=== PATIENT | male | born 1995 | race African-American/Black ===

== ENCOUNTER 2016-10-29 05:02 | Observation (INO) | payer SELFPAY ==
--- NOTE | 2016-10-29 05:36 | PDOC ---
History of Present Illness - General History Source: Patient <Michael Linton - Last Filed: 10/29/16 05:36> - General History Source: Patient, Family Exam Limitations: No Limitations - History of Present Illness Initial Comments: 10/29/16 05:51 The patient is a 21 year old male with no significant past medical history, who presents to the emergency department s/p seizure at approximately 04:19 this morning. The patients brother reports he went into the patients room because he heard the thumping of a foot on the floor. When the brother arrived to the room, he reports finding the patient in a full generalized tonic-clonic seizure for approximately 5 minutes. The patient reports he does not recall being fully conscious during this episode. As per brother, the patient was in and out of consciousness. When EMS arrived on scene, the patient was still seizing. The patient reports he did not begin to regain full consciousness until he was in the ambulance. The patient denies any family history or previous medical history of seizures. The patient denies any urinary or bowel incontinence. He reports smoking marijuana before going to bed, but states he has never had seizures s/p marijuana use until today. The patient reports he feels cold and has a residual headache, but states he feels like himself again. The patient denies any fever, dizziness, lightheadedness, or cough. The patient denies any nausea, vomiting, diarrhea, constipation, or changes in urination patterns. Allergies: None reported. Past Surgical History: None reported. Social History: Non-smoker. Denies alcohol use. Occasional marijuana use. <Colton Madrid - Last Filed: 10/29/16 19:15> - General Chief Complaint: Seizure Stated Complaint: SEIZURES Time Seen by Provider: 10/29/16 05:13 Past History - Psycho/Social/Smoking Cessation Hx Suicidal Ideation: No Smoking Status: No Smoking History: Never smoked Have you smoked in the past 12 months: No Number of Cigarettes Smoked Daily: 0 Information on smoking cessation initiated: No Drug/Substance Use Hx: Yes ([facility]) <CristoballisaAuroraMichael - Last Filed: 10/29/16 05:36> <Colton Madrid - Last Filed: 10/29/16 19:15> - Past Medical History Allergies/Adverse Reactions: Allergies Allergy/AdvReac Type Severity Reaction Status Date / Time No Known Allergies Allergy Verified 10/29/16 05:08 Home Medications: Ambulatory Orders NK [No Known Home Medication] 10/29/16 Review of Systems - Review of Systems Able to Perform ROS?: Yes Comments:: 10/29/16 05:52 CONSTITUTIONAL: Absent: fever, chills, diaphoresis, generalized weakness, malaise, loss of appetite HEENT: Absent: rhinorrhea, nasal congestion, throat pain, throat swelling, difficulty swallowing, mouth swelling, ear pain, eye pain, visual changes CARDIOVASCULAR: Absent: chest pain, syncope, palpitations, irregular heart rate, lightheadedness , peripheral edema RESPIRATORY: Absent: cough, shortness of breath, dyspnea with exertion, orthopnea, wheezing, stridor, hemoptysis GASTROINTESTINAL: Absent: abdominal pain, abdominal distension, nausea, vomiting, diarrhea, constipation, melena, hematochezia GENITOURINARY: Absent: dysuria, frequency, urgency, hesitancy, hematuria, flank pain, genital pain MUSCULOSKELETAL: Absent: myalgia, arthralgia, joint swelling SKIN: Absent: rash, itching, pallor HEMATOLOGIC/IMMUNOLOGIC: Absent: easy bleeding, easy bruising, lymphadenopathy, frequent infections ENDOCRINE: Present: +generally cold Absent: unexplained weight gain, unexplained weight loss, heat intolerance NEUROLOGIC: Present: +seizure, +loss of consciousness Absent: headache, focal weakness or paresthesias, dizziness, unsteady gait, bladder or bowel incontinence PSYCHIATRIC: Absent: anxiety, depression, suicidal or homicidal ideation, hallucinations. <Colton Madrid - Last Filed: 10/29/16 19:15> *Physical Exam - Vital Signs Last Vital Signs Temp Pulse Resp BP Pulse Ox 96 H 14 135/79 100 10/29/16 05:09 10/29/16 05:09 10/29/16 05:09 10/29/16 05:09 <Michael Linton - Last Filed: 10/29/16 05:36> - Vital Signs Last Vital Signs Temp Pulse Resp BP Pulse Ox 97.5 F L 87 18 134/70 100 10/29/16 05:35 10/29/16 05:35 10/29/16 05:35 10/29/16 05:35 10/29/16 05:35 - Physical Exam Comments: 10/29/16 05:52 GENERAL: Well developed, well nourished. Awake and alert. No acute distress. HEENT: Normocephalic, atraumatic. PERRLA, EOMI. No conjunctival pallor. Sclera are non- icteric. Moist mucous membranes. Oropharynx is clear. NECK: Supple. Full ROM. No JVD. Carotid pulses 2+ and symmetric, without bruits. No thyromegaly. No lymphadenopathy. CARDIOVASCULAR: Regular rate and rhythm. No murmurs, rubs, or gallops. Distal pulses are 2+ and symmetric. PULMONARY: No evidence of respiratory distress. Lungs clear to auscultation bilaterally. No wheezing, rales or rhonchi. ABDOMINAL: Soft. Non-tender. Non-distended. No rebound or guarding. No organomegaly. Normoactive bowel sounds. MUSCULOSKELETAL Normal range of motion at all joints. No bony deformities or tenderness. No CVA tenderness. EXTREMITIES: No cyanosis. No clubbing. No edema. No calf tenderness. SKIN: Warm and dry. Normal capillary refill. No rashes. No jaundice. NEUROLOGICAL: Alert, awake, appropriate. Cranial nerves 2-12 intact. No deficits to light touch and temperature in face, upper extremities and lower extremities. No motor deficits in the in face, upper extremities and lower extremities. Normoreflexic in the upper and lower extremities. Normal speech. Toes are down- going bilaterally. Gait is normal without ataxia. PSYCHIATRIC: Cooperative. Good eye contact. Appropriate mood and affect. <Colton Madrid - Last Filed: 10/29/16 19:15> ED Treatment Course - LABORATORY CBC & Chemistry Diagram: 10/29/16 05:48 10/29/16 05:48 - RADIOLOGY Radiograph Interpretation: 10/29/16 06:52 EXAM: Head CT INTERPRETED BY: Dr. Wild REVIEWED BY: Dr. Linton IMPRESSION: Normal exam. EXAM: CXR INTERPRETED BY: Dr. Salazar REVIEWED BY: Dr. Linton IMPRESSION: No active disease in the chest. <Colton Madrid - Last Filed: 10/29/16 19:15> *DC/Admit/Observation/Transfer <Michael Linton - Last Filed: 10/29/16 05:36> - Attestations Scribe Attestion: 10/29/16 05:53 Documentation prepared by Colton Madrid, acting as medical sales representative for Michael Linton DO. <Colton Madrid - Last Filed: 10/29/16 19:15> Diagnosis at time of Disposition: Seizure grand mal
[2016-10-29] MEDS ORDERED: ACETAMINOPHEN 500 MG TABLET (FP) PO ONE (05:38)
[2016-10-29] MEDS ORDERED: ACETAMINOPHEN 325 MG TABLET (FP) ONE (05:42)
[2016-10-29 06:10] LABS: BASOPHIL 0.2 % (0-2.0); EOSINOPHIL 0.5 % (0-4.5); MCHC 32.9 g/dl (32.0-35.9); MEAN CELL VOLUME 78.9 fl (80-96); MEAN PLT VOLUME 9.1 fl (7.5-11.1); NEUTROPHILS 75.9 % (42.8-82.8); PLATELET COUNT 177 K/MM3 (134-434); RDW 14.9 % (11.9-15.9)
[2016-10-29 06:11] LABS: URINE APPEARANCE CLEAR; URINE BILIRUBIN NEGATIVE (NEGATIVE); URINE COLOR LTYELLOW; URINE GLUCOSE (UA) NEGATIVE (NEGATIVE); URINE KETONE NEGATIVE (NEGATIVE); URINE LEUK ESTERASE NEGATIVE (NEGATIVE); URINE NITRITE NEGATIVE (NEGATIVE); URINE UROBILINOGEN NEGATIVE E.U./dl (0.2-1.0)
[2016-10-29 06:24] LABS: URINE MARIJUANA THC POSITIVE ng/ml (CUTOFF=50)
[2016-10-29 06:30] LABS: INR 0.96 (0.82-1.09); PROTHROMBIN TIME (PATIENT) 10.6 SEC (9.98-11.88)
[2016-10-29 06:53] LABS: URINE BLOOD 1+ (NEGATIVE); URINE PROTEIN 2+ (NEGATIVE)
[2016-10-29 07:00] LABS: ALBUMIN 4.2 g/dl (3.4-5.0); ANION GAP 9 (8-16); BILIRUBIN,TOTAL 0.3 mg/dL (0.2-1.0); CALCIUM 8.6 mg/dL (8.5-10.1); CO2 26 mmol/L (21-32); CREATININE 1.5 mg/dL (0.7-1.3); GLUCOSE,RANDOM 107 mg/dL (74-106); SGOT/AST 19 U/L (15-37); SGPT/ALT 19 U/L (12-78)
[2016-10-29 07:03] LABS: ALK PHOS 89 U/L (45-117); TROPONIN I < 0.02 ng/ml (0.00-0.05)
--- NOTE | 2016-10-29 07:49 | PDOC ---
*Physical Exam - Vital Signs Last Vital Signs Temp Pulse Resp BP Pulse Ox 97.5 F L 87 18 134/70 100 10/29/16 05:35 10/29/16 05:35 10/29/16 05:35 10/29/16 05:35 10/29/16 05:35 - Physical Exam Comments: 10/29/16 07:49 SIGN IN Sign-out received from outgoing Emergency Physician Pt interviewed and examined Ancillary studies reviewed The patient is a 21 year old male with no significant past medical history, who presents to the emergency department s/p seizure at approximately 04:19 this morning. The patients brother reports he went into the patients room because he heard the thumping of a foot on the floor. When the brother arrived to the room, he reports finding the patient in a full generalized tonic-clonic seizure for approximately 5 minutes. The patient reports he does not recall being fully conscious during this episode. As per brother, the patient was in and out of consciousness. When EMS arrived on scene, the patient was still seizing. The patient reports he did not begin to regain full consciousness until he was in the ambulance. The patient denies any family history or previous medical history of seizures. The patient denies any urinary or bowel incontinence. He reports smoking marijuana before going to bed, but states he has never had seizures s/p marijuana use until today. The patient reports he feels cold and has a residual headache, but states he feels like himself again. The patient denies any fever, dizziness, lightheadedness, or cough. The patient denies any nausea, vomiting, diarrhea, constipation, or changes in urination patterns. Spoke to family member who witnessed the seizure patient had a generalized tonic-clonic seizure, without focality No family history of seizures, no prior history of seizures Alert and answering questions Grossly nonfocal neurologic exam Vital Signs - 24 hr 10/29/16 10/29/16 05:09 05:35 Temperature 97.5 F L Pulse Rate 96 H Pulse Rate [ 87 Radial] Respiratory 14 18 Rate Blood Pressure 135/79 Blood Pressure 134/70 [Right Arm] O2 Sat by Pulse 100 100 Oximetry (%) CT scan of the head without - NAD Laboratory Results - last 24 hr 10/29/16 10/29/16 10/29/16 05:48 05:48 05:48 WBC 8.0 RBC 5.22 Hgb 13.6 Hct 41.2 MCV 78.9 L MCHC 32.9 RDW 14.9 Plt Count 177 MPV 9.1 Neutrophils % 75.9 Lymphocytes % 18.8 Monocytes % 4.6 Eosinophils % 0.5 Basophils % 0.2 INR 0.96 Sodium Potassium Chloride Carbon Dioxide Anion Gap BUN Creatinine Creat Clearance w eGFR Random Glucose Calcium Total Bilirubin AST ALT Alkaline Phosphatase Creatine Kinase Creatine Kinase Index CK-MB (CK-2) CK-MB (CK-2) Rel Index Troponin I Total Protein Albumin Urine Color Ltyellow Urine Appearance Clear Urine pH 5.0 Ur Specific [place] 1.018 Urine Protein 2+ H Urine Glucose (UA) Negative Urine Ketones Negative Urine Blood 1+ H Urine Nitrite Negative Urine Bilirubin Negative Urine Urobilinogen Negative Ur Leukocyte Esterase Negative Opiates Screen Methadone Screen Barbiturate Screen Phencyclidine Screen Ur Amphetamines Screen MDMA (Ecstasy) Screen Benzodiazepines Screen Cocaine Screen U Marijuana (THC) Screen Blood Type Antibody Screen 10/29/16 10/29/16 10/29/16 05:48 05:48 05:48 WBC RBC Hgb Hct MCV MCHC RDW Plt Count MPV Neutrophils % Lymphocytes % Monocytes % Eosinophils % Basophils % INR Sodium 139 Potassium 3.7 Chloride 104 Carbon Dioxide 26 Anion Gap 9 BUN 27 H Creatinine 1.5 H Creat Clearance w eGFR 59.08 Random Glucose 107 H Calcium 8.6 Total Bilirubin 0.3 AST 19 ALT 19 Alkaline Phosphatase 89 Creatine Kinase 305 Creatine Kinase Index 0.4 CK-MB (CK-2) 1.177 CK-MB (CK-2) Rel Index Troponin I < 0.02 Total Protein 8.0 Albumin 4.2 Urine Color Urine Appearance Urine pH Ur Specific [place] Urine Protein Urine Glucose (UA) Urine Ketones Urine Blood Urine Nitrite Urine Bilirubin Urine Urobilinogen Ur Leukocyte Esterase Opiates Screen Positive Methadone Screen Negative Barbiturate Screen Negative Phencyclidine Screen Negative Ur Amphetamines Screen Negative MDMA (Ecstasy) Screen Negative Benzodiazepines Screen Negative Cocaine Screen Negative U Marijuana (THC) Screen Positive Blood Type O POSITIVE Antibody Screen Negative 10/29/16 05:48 WBC RBC Hgb Hct MCV MCHC RDW Plt Count MPV Neutrophils % Lymphocytes % Monocytes % Eosinophils % Basophils % INR Sodium Potassium Chloride Carbon Dioxide Anion Gap BUN Creatinine Creat Clearance w eGFR Random Glucose Calcium Total Bilirubin AST ALT Alkaline Phosphatase Creatine Kinase Creatine Kinase Index CK-MB (CK-2) CK-MB (CK-2) Rel Index Cancelled Troponin I Total Protein Albumin Urine Color Urine Appearance Urine pH Ur Specific [place] Urine Protein Urine Glucose (UA) Urine Ketones Urine Blood Urine Nitrite Urine Bilirubin Urine Urobilinogen Ur Leukocyte Esterase Opiates Screen Methadone Screen Barbiturate Screen Phencyclidine Screen Ur Amphetamines Screen MDMA (Ecstasy) Screen Benzodiazepines Screen Cocaine Screen U Marijuana (THC) Screen Blood Type Antibody Screen Drug screen positive for opiates and THC CXR - NAD chest x-ray-NAD Will load with Julienne Hospitalist [id number] admit Eakcznimah-[id number]-[id number] seizure disorder ED Treatment Course - LABORATORY CBC & Chemistry Diagram: 10/29/16 05:48 10/29/16 05:48 - ADDITIONAL ORDERS Additional order review: Laboratory Results 10/29/16 10/29/16 10/29/16 05:48 05:48 05:48 INR Sodium Potassium Chloride Carbon Dioxide Anion Gap BUN Creatinine Creat Clearance w eGFR Random Glucose Calcium Total Bilirubin AST ALT Alkaline Phosphatase Creatine Kinase Creatine Kinase Index CK-MB (CK-2) CK-MB (CK-2) Rel Index Cancelled Troponin I Total Protein Albumin Urine Color Urine Appearance Urine pH Ur Specific [place] Urine Protein Urine Glucose (UA) Urine Ketones Urine Blood Urine Nitrite Urine Bilirubin Urine Urobilinogen Ur Leukocyte Esterase Opiates Screen Positive Methadone Screen Negative Barbiturate Screen Negative Phencyclidine Screen Negative Ur Amphetamines Screen Negative MDMA (Ecstasy) Screen Negative Benzodiazepines Screen Negative Cocaine Screen Negative U Marijuana (THC) Screen Positive Blood Type O POSITIVE Antibody Screen Negative 10/29/16 10/29/16 10/29/16 05:48 05:48 05:48 INR 0.96 Sodium 139 Potassium 3.7 Chloride 104 Carbon Dioxide 26 Anion Gap 9 BUN 27 H Creatinine 1.5 H Creat Clearance w eGFR 59.08 Random Glucose 107 H Calcium 8.6 Total Bilirubin 0.3 AST 19 ALT 19 Alkaline Phosphatase 89 Creatine Kinase 305 Creatine Kinase Index 0.4 CK-MB (CK-2) 1.177 CK-MB (CK-2) Rel Index Troponin I < 0.02 Total Protein 8.0 Albumin 4.2 Urine Color Ltyellow Urine Appearance Clear Urine pH 5.0 Ur Specific [place] 1.018 Urine Protein 2+ H Urine Glucose (UA) Negative Urine Ketones Negative Urine Blood 1+ H Urine Nitrite Negative Urine Bilirubin Negative Urine Urobilinogen Negative Ur Leukocyte Esterase Negative Opiates Screen Methadone Screen Barbiturate Screen Phencyclidine Screen Ur Amphetamines Screen MDMA (Ecstasy) Screen Benzodiazepines Screen Cocaine Screen U Marijuana (THC) Screen Blood Type Antibody Screen 10/29/16 05:48 RBC 5.22 MCV 78.9 L MCHC 32.9 RDW 14.9 MPV 9.1 Neutrophils % 75.9 Lymphocytes % 18.8 Monocytes % 4.6 Eosinophils % 0.5 Basophils % 0.2 - Medications Given in the ED: ED Medications Discontinued Medications Generic Name Dose Route Start Last Admin Trade Name Freq PRN Reason Stop Dose Admin Acetaminophen 1,000 mg 10/29/16 05:38 10/29/16 06:06 Tylenol - PO 10/29/16 05:39 1,000 mg ONCE ONE Administration *DC/Admit/Observation/Transfer Diagnosis at time of Disposition: Grand mal seizure - Discharge Dispostion Admit: Yes
--- NOTE | 2016-10-29 09:44 | HP ---
PCP: None CHIEF COMPLAINT: Seizure HISTORY OF PRESENT ILLNESS: This is a 21-year-old man who comes to the ER after a witnessed seizure. He was found on the floor next to his bed having seizure activity. His entire body was shaking. He was found around 4:19 am and the activity lasted about 5 minutes. He did not bite his tongue and he was not incontinent. He awoke in the ambulance. His only complaint now is of a generalized headache. He denies prior seizures, fever, chills, chest pain, shortness of breath, recent illness, alcohol use. He admits to using marijuana and taking half of a Vicodin at a alliance party last night. PAST MEDICAL HISTORY: Denies PAST SURGICAL HISTORY: Denies Allergies No Known Allergies Allergy (Verified 10/29/16 05:08) HOME MEDICATIONS 3 Medication Instructions Recorded NK [No Known Home Medication] 10/29/16 Social History: Smoking: Denies Alcohol: Denies Drugs: Marijuana Recent Travel: No Family History: Unremarkable REVIEW OF SYSTEMS CONSTITUTIONAL: Absent: fever, chills, diaphoresis, generalized weakness, malaise, loss of appetite, weight change HEENT: Absent: rhinorrhea, nasal congestion, throat pain, throat swelling, difficulty swallowing, mouth swelling, ear pain, eye pain, visual changes CARDIOVASCULAR: Absent: chest pain, syncope, palpitations, lightheadedness, peripheral edema RESPIRATORY: Absent: cough, shortness of breath, dyspnea with exertion, orthopnea, wheezing, stridor, hemoptysis GASTROINTESTINAL: Absent: abdominal pain, abdominal distension, nausea, vomiting , diarrhea, constipation, melena, hematochezia GENITOURINARY: Absent: dysuria, frequency, urgency, hesitancy, hematuria, flank pain MUSCULOSKELETAL: Absent: myalgia, arthralgia, joint swelling, back pain, neck pain SKIN: Absent: rash, itching, pallor HEMATOLOGIC/IMMUNOLOGIC: Absent: easy bleeding, easy bruising, lymphadenopathy, frequent infections ENDOCRINE: Absent: unexplained weight gain, unexplained weight loss, heat intolerance, cold intolerance NEUROLOGIC: Present: headache. Absent: focal weakness, paresthesias, dizziness , unsteady gait, seizure, mental status changes, bladder or bowel incontinence PSYCHIATRIC: Absent: anxiety, depression, suicidal or homicidal ideation, hallucinations. PHYSICAL EXAMINATION Vital Signs Period Temp Pulse Resp BP Sys/Canseco Pulse Ox Last 24 Hr 97.5 F 87-96 14-18 134-135/70-79 100-100 GENERAL: Awake, alert, and fully oriented, in no acute distress. HEAD: Normal with no signs of trauma. EYES: Pupils equal, round and reactive to light, extraocular movements intact, sclerae anicteric, conjunctivae clear. EARS, NOSE, THROAT: Ears normal, nares patent, oropharynx clear without exudates. Moist mucous membranes. NECK: Normal range of motion, supple without lymphadenopathy, JVD, or masses. LUNGS: Breath sounds equal, clear to auscultation bilaterally. No wheezes, and no crackles. No accessory muscle use. HEART: Regular rate and rhythm, normal S1 and S2 without murmur, rub or gallop. ABDOMEN: Soft, nontender, not distended, normoactive bowel sounds, no guarding, no rebound, no masses. No hepatomegaly or splenomegaly. MUSCULOSKELETAL: Normal range of motion at all joints. No bony deformities or tenderness. No CVA tenderness. UPPER EXTREMITIES: 2+ pulses, warm, well-perfused. No cyanosis. No clubbing. Cap refill <2 seconds. No peripheral edema. LOWER EXTREMITIES: 2+ pulses, warm, well-perfused. No calf tenderness. No peripheral edema. NEUROLOGICAL: Cranial nerves II-XII intact. Normal speech. Gait not observed. PSYCHIATRIC: Cooperative. Good eye contact. Appropriate mood and affect. SKIN: Warm, dry, normal turgor, no rashes or lesions noted. Laboratory Tests 10/29/16 10/29/16 10/29/16 05:48 05:48 05:48 WBC 8.0 RBC 5.22 Hgb 13.6 Hct 41.2 MCV 78.9 L MCHC 32.9 RDW 14.9 Plt Count 177 MPV 9.1 Neutrophils % 75.9 Lymphocytes % 18.8 Monocytes % 4.6 Eosinophils % 0.5 Basophils % 0.2 INR 0.96 Sodium Potassium Chloride Carbon Dioxide Anion Gap BUN Creatinine Creat Clearance w eGFR Random Glucose Calcium Total Bilirubin AST ALT Alkaline Phosphatase Creatine Kinase Creatine Kinase Index CK-MB (CK-2) CK-MB (CK-2) Rel Index Troponin I Total Protein Albumin Urine Color Ltyellow Urine Appearance Clear Urine pH 5.0 Ur Specific [place] 1.018 Urine Protein 2+ H Urine Glucose (UA) Negative Urine Ketones Negative Urine Blood 1+ H Urine Nitrite Negative Urine Bilirubin Negative Urine Urobilinogen Negative Ur Leukocyte Esterase Negative Opiates Screen Methadone Screen Barbiturate Screen Phencyclidine Screen Ur Amphetamines Screen MDMA (Ecstasy) Screen Benzodiazepines Screen Cocaine Screen U Marijuana (THC) Screen Blood Type Antibody Screen 10/29/16 10/29/16 10/29/16 05:48 05:48 05:48 WBC RBC Hgb Hct MCV MCHC RDW Plt Count MPV Neutrophils % Lymphocytes % Monocytes % Eosinophils % Basophils % INR Sodium 139 Potassium 3.7 Chloride 104 Carbon Dioxide 26 Anion Gap 9 BUN 27 H Creatinine 1.5 H Creat Clearance w eGFR 59.08 Random Glucose 107 H Calcium 8.6 Total Bilirubin 0.3 AST 19 ALT 19 Alkaline Phosphatase 89 Creatine Kinase 305 Creatine Kinase Index 0.4 CK-MB (CK-2) 1.177 CK-MB (CK-2) Rel Index Troponin I < 0.02 Total Protein 8.0 Albumin 4.2 Urine Color Urine Appearance Urine pH Ur Specific [place] Urine Protein Urine Glucose (UA) Urine Ketones Urine Blood Urine Nitrite Urine Bilirubin Urine Urobilinogen Ur Leukocyte Esterase Opiates Screen Positive Methadone Screen Negative Barbiturate Screen Negative Phencyclidine Screen Negative Ur Amphetamines Screen Negative MDMA (Ecstasy) Screen Negative Benzodiazepines Screen Negative Cocaine Screen Negative U Marijuana (THC) Screen Positive Blood Type O POSITIVE Antibody Screen Negative 10/29/16 05:48 WBC RBC Hgb Hct MCV MCHC RDW Plt Count MPV Neutrophils % Lymphocytes % Monocytes % Eosinophils % Basophils % INR Sodium Potassium Chloride Carbon Dioxide Anion Gap BUN Creatinine Creat Clearance w eGFR Random Glucose Calcium Total Bilirubin AST ALT Alkaline Phosphatase Creatine Kinase Creatine Kinase Index CK-MB (CK-2) CK-MB (CK-2) Rel Index Cancelled Troponin I Total Protein Albumin Urine Color Urine Appearance Urine pH Ur Specific [place] Urine Protein Urine Glucose (UA) Urine Ketones Urine Blood Urine Nitrite Urine Bilirubin Urine Urobilinogen Ur Leukocyte Esterase Opiates Screen Methadone Screen Barbiturate Screen Phencyclidine Screen Ur Amphetamines Screen MDMA (Ecstasy) Screen Benzodiazepines Screen Cocaine Screen U Marijuana (THC) Screen Blood Type Antibody Screen Chest x-ray: No acute process. Head CT: No infarct, mass, hemorrhage. ASSESSMENT/PLAN: This is a 21-year-old man with no significant past medical history who presented to the ER after he was witnessed to have a generalized seizure at home. He admitted to using marijuana and taking Vicodin last night. He was found to have BUN 27, creatinine 1.5,and urinalysis positive for 2+ protein, 1+ blood. He is being placed in observation now for further evaluation of an emergent condition. 1. Seizure - First known seizure - EEG - Neurology consult 2. Acute kidney injury, secondary to dehydration, with proteinuria and microscopic hematuria - Rule out CKD - Renal US - IV fluid - Monitor BUN, creatinine - Nephrology consult Visit type - Emergency Visit Emergency Visit: Yes ED Registration Date: 10/29/16 Care time: The patient presented to the Emergency Department on the above date and was hospitalized for further evaluation of their emergent condition. - New Patient This patient is new to me today: Yes Date on this admission: 10/29/16 - Critical Care Critical Care patient: No
[2016-10-29] MEDS ORDERED: ACETAMINOPHEN 325 MG TABLET (FP) PO PRN (09:46)
[2016-10-29] MEDS ORDERED: ONDANSETRON 4 MG/2 ML VIAL IVPB PRN (09:46)
[2016-10-29 10:11] VITALS: BMI 28.8
--- NOTE | 2016-10-29 11:25 | CONSULT ---
Consult - text type - Consultation Consultation Note: Neurology The patient is a 21 year old male with no significant past medical history, who presents to the emergency department s/p seizure event in the context of substance use. The patients brother reports he went into the patients room because he heard the thumping of a foot on the floor. When the brother arrived to the room, he reports finding the patient in a full generalized tonic-clonic seizure for approximately 5 minutes. The patient reports he does not recall being fully conscious during this episode. As per brother, the patient was in and out of consciousness. When EMS arrived on scene, the patient was still seizing. The patient reports he did not begin to regain full consciousness until he was in the ambulance. The patient denies any family history or previous medical history of seizures. The patient denies any urinary or bowel incontinence. He reports smoking marijuana before going to bed and his UTOX was also positive for opiates and then reported taking a Vicodin for pain, but not for recreation. The patient denies any fever, dizziness, lightheadedness, or cough. The patient denies any nausea, vomiting, diarrhea, constipation, or changes in urination patterns. Past History - Psycho/Social/Smoking Cessation Hx Suicidal Ideation: No Smoking Status: No Smoking History: Never smoked Have you smoked in the past 12 months: No Number of Cigarettes Smoked Daily: 0 Information on smoking cessation initiated: No Drug/Substance Use Hx: Yes ([facility]) - Past Medical History Allergies/Adverse Reactions: Allergies Allergy/AdvReac Type Severity Reaction Status Date / Time No Known Allergies Allergy Verified 10/29/16 05:08 Home Medications: Ambulatory Orders NK [No Known Home Medication] 10/29/16 Review of Systems CONSTITUTIONAL: Absent: fever, chills, diaphoresis, generalized weakness, malaise, loss of appetite HEENT: Absent: rhinorrhea, nasal congestion, throat pain, throat swelling, difficulty swallowing, mouth swelling, ear pain, eye pain, visual changes CARDIOVASCULAR: Absent: chest pain, syncope, palpitations, irregular heart rate, lightheadedness , peripheral edema RESPIRATORY: Absent: cough, shortness of breath, dyspnea with exertion, orthopnea, wheezing, stridor, hemoptysis GASTROINTESTINAL: Absent: abdominal pain, abdominal distension, nausea, vomiting, diarrhea, constipation, melena, hematochezia GENITOURINARY: Absent: dysuria, frequency, urgency, hesitancy, hematuria, flank pain, genital pain MUSCULOSKELETAL: Absent: myalgia, arthralgia, joint swelling SKIN: Absent: rash, itching, pallor HEMATOLOGIC/IMMUNOLOGIC: Absent: easy bleeding, easy bruising, lymphadenopathy, frequent infections ENDOCRINE: Present: +generally cold Absent: unexplained weight gain, unexplained weight loss, heat intolerance NEUROLOGIC: Present: +seizure, +loss of consciousness Absent: headache, focal weakness or paresthesias, dizziness, unsteady gait, bladder or bowel incontinence PSYCHIATRIC: Absent: anxiety, depression, suicidal or homicidal ideation, hallucinations. *Physical Exam Last Vital Signs Temp Pulse Resp BP Pulse Ox 98.3 F 79 18 134/81 100 10/29/16 10:06 10/29/16 10:06 10/29/16 10:06 10/29/16 10:06 10/29/16 10:06 GENERAL: Well developed, well nourished. Awake and alert. No acute distress. HEENT: Normocephalic, atraumatic. PERRLA, EOMI. No conjunctival pallor. Sclera are non- icteric. Moist mucous membranes. Oropharynx is clear. NECK: Supple. Full ROM. No JVD. Carotid pulses 2+ and symmetric, without bruits. No thyromegaly. No lymphadenopathy. CARDIOVASCULAR: Regular rate and rhythm. No murmurs, rubs, or gallops. Distal pulses are 2+ and symmetric. PULMONARY: No evidence of respiratory distress. Lungs clear to auscultation bilaterally. No wheezing, rales or rhonchi. ABDOMINAL: Soft. Non-tender. Non-distended. No rebound or guarding. No organomegaly. Normoactive bowel sounds. MUSCULOSKELETAL Normal range of motion at all joints. No bony deformities or tenderness. No CVA tenderness. EXTREMITIES: No cyanosis. No clubbing. No edema. No calf tenderness. SKIN: Warm and dry. Normal capillary refill. No rashes. No jaundice. NEUROLOGICAL: Alert, awake, appropriate. Cranial nerves 2-12 intact. No deficits to light touch and temperature in face, upper extremities and lower extremities. No motor deficits in the in face, upper extremities and lower extremities. Normoreflexic in the upper and lower extremities. Normal speech. Toes are down- going bilaterally. Gait is normal without ataxia. PSYCHIATRIC: Cooperative. Good eye contact. Appropriate mood and affect. CBCD WBC 8.0 K/mm3 (4.0-10.0) 10/29/16 05:48 RBC 5.22 M/mm3 (4.00-5.60) 10/29/16 05:48 Hgb 13.6 GM/dL (11.7-16.9) 10/29/16 05:48 Hct 41.2 % (35.4-49) 10/29/16 05:48 MCV 78.9 fl (80-96) L 10/29/16 05:48 MCHC 32.9 g/dl (32.0-35.9) 10/29/16 05:48 RDW 14.9 % (11.9-15.9) 10/29/16 05:48 Plt Count 177 K/MM3 (134-434) 10/29/16 05:48 MPV 9.1 fl (7.5-11.1) 10/29/16 05:48 CMP Sodium 139 mmol/L (136-145) 10/29/16 05:48 Potassium 3.7 mmol/L (3.5-5.1) 10/29/16 05:48 Chloride 104 mmol/L (98-107) 10/29/16 05:48 Carbon Dioxide 26 mmol/L (21-32) 10/29/16 05:48 Anion Gap 9 (8-16) 10/29/16 05:48 BUN 27 mg/dL (7-18) H 10/29/16 05:48 Creatinine 1.5 mg/dL (0.7-1.3) H 10/29/16 05:48 Creat Clearance w eGFR 59.08 (>60) 10/29/16 05:48 Calcium 8.6 mg/dL (8.5-10.1) 10/29/16 05:48 Total Bilirubin 0.3 mg/dL (0.2-1.0) 10/29/16 05:48 AST 19 U/L (15-37) 10/29/16 05:48 ALT 19 U/L (12-78) 10/29/16 05:48 Alkaline Phosphatase 89 U/L (45-117) 10/29/16 05:48 Total Protein 8.0 g/dl (6.4-8.2) 10/29/16 05:48 Albumin 4.2 g/dl (3.4-5.0) 10/29/16 05:48 - RADIOLOGY Radiograph Interpretation: 10/29/16 06:52 EXAM: Head CT INTERPRETED BY: Dr. Wild REVIEWED BY: Dr. Linton IMPRESSION: Normal exam. Plan: 21 year old male with no significant past medical history, who presents to the emergency department s/p seizure event in the context of substance use. The patients brother reports he went into the patients room because he heard the thumping of a foot on the floor. When the brother arrived to the room, he reports finding the patient in a full generalized tonic-clonic seizure for approximately 5 minutes. UTOX was positive for opiates and THC Drug cessation discussed Admited for EEG and observation Seizure precaution Would not start AED for first time event CT negative Labs otherwise normal Patient at baseline
[2016-10-29] MEDS: SODIUM CHLORIDE 1,000 ML IV SCH (12:55)
--- NOTE | 2016-10-29 13:49 | CONSULT ---
Consult Consult Specialty:: Nephrology Reason for Consultation:: LELAND - History of Present Illness Chief Complaint: brought in to ER for seizure History of Present Illness: Pt is a 21 year old male with no significant past medical history who was brought in to the ER after having a seizure at home. The seizure lasted for about 4 minutes and was generalized tonic-clonic. He smoked marijuana last night and said he took half of a vicodin last night for knee pain. He was found to have elevated creatinine and I was called to evaluate him. He denies history of CKD. He denies family history of renal disease or dialysis. He denies dysuria or hematuria. He denies NSAID use. He is now awake and alert. - History Source History Provided By: Patient, Family Member - Alcohol/Substance Use History of Substance Use: reports: Marijuana - Smoking History Smoking history: Never smoked Have you smoked in the past 12 months: No Aproximately how many cigarettes per day: 0 Home Medications - Allergies Allergies/Adverse Reactions: Allergies Allergy/AdvReac Type Severity Reaction Status Date / Time No Known Allergies Allergy Verified 10/29/16 05:08 - Home Medications Home Medications: Ambulatory Orders NK [No Known Home Medication] 10/29/16 Family Disease History - Family Disease History Family History: Denies Review of Systems - Review of Systems Constitutional: reports: No Symptoms Eyes: reports: No Symptoms HENT: reports: No Symptoms Neck: reports: No Symptoms Cardiovascular: reports: No Symptoms Respiratory: reports: No Symptoms Gastrointestinal: reports: No Symptoms Genitourinary: reports: No Symptoms Musculoskeletal: reports: No Symptoms Integumentary: reports: No Symptoms Neurological: reports: No Symptoms Endocrine: reports: No Symptoms Hematology/Lymphatic: reports: No Symptoms Psychiatric: reports: No Symptoms Physical Exam Vital Signs: Vital Signs Temperature 98.3 F 10/29/16 10:06 Pulse Rate 79 10/29/16 10:06 Respiratory Rate 18 10/29/16 10:06 Blood Pressure 134/81 10/29/16 10:06 O2 Sat by Pulse Oximetry (%) 100 10/29/16 10:06 Constitutional: Yes: Calm Eyes: Yes: Conjunctiva Clear HENT: Yes: Atraumatic Neck: Yes: Supple Cardiovascular: Yes: S1, S2 Respiratory: Yes: CTA Bilaterally Gastrointestinal: Yes: Normal Bowel Sounds, Soft Renal/: Yes: WNL. No: CVA Tenderness - Left, CVA Tenderness - Right Musculoskeletal: Yes: WNL Extremities: Yes: WNL Edema: No Neurological: Yes: Oriented Psychiatric: Yes: Oriented Labs: Laboratory Tests 10/29/16 10/29/16 10/29/16 05:48 05:48 05:48 WBC 8.0 Hgb 13.6 Plt Count 177 INR 0.96 Sodium Potassium Chloride Carbon Dioxide Anion Gap BUN Creatinine Creat Clearance w eGFR Random Glucose Calcium Total Bilirubin AST ALT Alkaline Phosphatase Creatine Kinase Albumin Urine Color Ltyellow Urine Appearance Clear Urine pH 5.0 Ur Specific [place] 1.018 Urine Protein 2+ H Urine Glucose (UA) Negative Urine Ketones Negative Urine Blood 1+ H Urine Nitrite Negative Urine Bilirubin Negative Urine Urobilinogen Negative Ur Leukocyte Esterase Negative Opiates Screen Methadone Screen Barbiturate Screen Phencyclidine Screen Ur Amphetamines Screen MDMA (Ecstasy) Screen Benzodiazepines Screen Cocaine Screen U Marijuana (THC) Screen 10/29/16 10/29/16 05:48 05:48 WBC Hgb Plt Count INR Sodium 139 Potassium 3.7 Chloride 104 Carbon Dioxide 26 Anion Gap 9 BUN 27 H Creatinine 1.5 H Creat Clearance w eGFR 59.08 Random Glucose 107 H Calcium 8.6 Total Bilirubin 0.3 AST 19 ALT 19 Alkaline Phosphatase 89 Creatine Kinase 305 Albumin 4.2 Urine Color Urine Appearance Urine pH Ur Specific [place] Urine Protein Urine Glucose (UA) Urine Ketones Urine Blood Urine Nitrite Urine Bilirubin Urine Urobilinogen Ur Leukocyte Esterase Opiates Screen Positive Methadone Screen Negative Barbiturate Screen Negative Phencyclidine Screen Negative Ur Amphetamines Screen Negative MDMA (Ecstasy) Screen Negative Benzodiazepines Screen Negative Cocaine Screen Negative U Marijuana (THC) Screen Positive Imaging - Results Chest X-ray: Report Reviewed Cat Scan: Report Reviewed (ct head reviewed) Ultrasound: Report Reviewed (renal ultrasound reviewed) Problem List - Problems (1) Tonic clonic seizures Code(s): G40.409 - OTH GENERALIZED EPILEPSY, NOT INTRACTABLE, W/O STAT EPI (2) LELAND (acute kidney injury) Code(s): N17.9 - ACUTE KIDNEY FAILURE, UNSPECIFIED (3) Proteinuria Code(s): R80.9 - PROTEINURIA, UNSPECIFIED (4) Microscopic hematuria Code(s): R31.2 - OTHER MICROSCOPIC HEMATURIA * DO NOT USE * Assessment/Plan Current Medications Generic Name Dose Route Start Last Admin Trade Name Freq PRN Reason Stop Dose Admin Acetaminophen 650 mg 10/29/16 09:46 Tylenol - PO Q4H PRN FEVER OR PAIN Sodium Chloride 1,000 mls @ 100 mls/hr 10/29/16 10:00 10/29/16 12:55 Normal Saline - IV 100 mls/hr ASDIR ASH Administration Ondansetron HCl 4 mg 10/29/16 09:46 Zofran Injection IVPB Q6H PRN NAUSEA Impression 1. LELAND possibly dehydration 2. seizure 3. multi drug use including marijuana 4. proteinuria 5. microscopic hematuria Plan - will start fluids - repeat labs in am - renal ultrasound reviewed - repeat ua tomorrow - check urine creatinine and sodium to calculate fena - will need renal workup for CKD which can be done as outpt - check urine protein to creatinine ratio - neuro input appreciated Dr Shetty
--- NOTE | 2016-10-29 16:13 | EKG ---
Test Reason : Blood Pressure : / mmHG Vent. Rate : 085 BPM Atrial Rate : 085 BPM P-R Int : 238 ms QRS Dur : 088 ms QT Int : 344 ms P-R-T Axes : 049 059 037 degrees QTc Int : 409 ms SINUS RHYTHM WITH 1ST DEGREE A-V BLOCK OTHERWISE NORMAL ECG NO PREVIOUS ECGS AVAILABLE Confirmed by ANA HITCHCOCK, AIDE ([id number]) on 10/29/2016 4:13:04 PM Referred By: Confirmed By:AIDE PEREZ MD
[2016-10-29 17:38] LABS: URINE APPEARANCE CLEAR; URINE BILIRUBIN NEGATIVE (NEGATIVE); URINE BLOOD NEGATIVE (NEGATIVE); URINE COLOR STRAW; URINE GLUCOSE (UA) NEGATIVE (NEGATIVE); URINE KETONE NEGATIVE (NEGATIVE); URINE LEUK ESTERASE NEGATIVE (NEGATIVE); URINE NITRITE NEGATIVE (NEGATIVE); URINE PROTEIN NEGATIVE (NEGATIVE); URINE UROBILINOGEN NEGATIVE E.U./dl (0.2-1.0)
[2016-10-30 09:27] LABS: ALBUMIN 3.7 g/dl (3.4-5.0); ANION GAP 8 (8-16); BILIRUBIN,TOTAL 0.7 mg/dL (0.2-1.0); CALCIUM 8.3 mg/dL (8.5-10.1); CO2 26 mmol/L (21-32); CREATININE 1.2 mg/dL (0.7-1.3); GLUCOSE,RANDOM 89 mg/dL (74-106); SGOT/AST 27 U/L (15-37); SGPT/ALT 17 U/L (12-78)
[2016-10-30 09:29] LABS: ALK PHOS 52 U/L (45-117); TOT PROT 6.8 g/dl (6.4-8.2)
[2016-10-30] MEDS: SODIUM CHLORIDE 1,000 ML IV SCH (10:16)
--- NOTE | 2016-10-30 10:36 | PN ---
Progress Note (short form) - Note Progress Note: Neurology The patient is a 21 year old male with no significant past medical history, who presented to the emergency department s/p seizure event in the context of substance use. The patients brother reports he went into the patients room because he heard the thumping of a foot on the floor. When the brother arrived to the room, he reports finding the patient in a full generalized tonic-clonic seizure for approximately 5 minutes. The patient reports he does not recall being fully conscious during this episode. As per brother, the patient was in and out of consciousness. When EMS arrived on scene, the patient was still seizing. The patient reports he did not begin to regain full consciousness until he was in the ambulance. The patient denies any family history or previous medical history of seizures. The patient denies any urinary or bowel incontinence. He reports smoking marijuana before going to bed and his UTOX was also positive for opiates and then reported taking a Vicodin for pain, but not for recreation. The patient denies any fever, dizziness, lightheadedness, or cough. The patient denies any nausea, vomiting, diarrhea, constipation, or changes in urination patterns. EEG completed and reviewed, normal. Patient reports feeling well today and appears to be at baseline. *Physical Exam Vital Signs Period Temp Pulse Resp BP Sys/[employer] Pulse Ox Last 24 Hr 98.4 F-98.8 F 68-74 18-20 101-148/56-83 100-100 GENERAL: Well developed, well nourished. Awake and alert. No acute distress. HEENT: Normocephalic, atraumatic. PERRLA, EOMI. No conjunctival pallor. Sclera are non- icteric. Moist mucous membranes. Oropharynx is clear. NECK: Supple. Full ROM. No JVD. Carotid pulses 2+ and symmetric, without bruits. No thyromegaly. No lymphadenopathy. CARDIOVASCULAR: Regular rate and rhythm. No murmurs, rubs, or gallops. Distal pulses are 2+ and symmetric. PULMONARY: No evidence of respiratory distress. Lungs clear to auscultation bilaterally. No wheezing, rales or rhonchi. ABDOMINAL: Soft. Non-tender. Non-distended. No rebound or guarding. No organomegaly. Normoactive bowel sounds. MUSCULOSKELETAL Normal range of motion at all joints. No bony deformities or tenderness. No CVA tenderness. EXTREMITIES: No cyanosis. No clubbing. No edema. No calf tenderness. SKIN: Warm and dry. Normal capillary refill. No rashes. No jaundice. NEUROLOGICAL: Alert, awake, appropriate. Cranial nerves 2-12 intact. No deficits to light touch and temperature in face, upper extremities and lower extremities. No motor deficits in the in face, upper extremities and lower extremities. Normoreflexic in the upper and lower extremities. Normal speech. Toes are down- going bilaterally. Gait is normal without ataxia. PSYCHIATRIC: Cooperative. Good eye contact. Appropriate mood and affect. CBCD WBC 8.0 K/mm3 (4.0-10.0) 10/29/16 05:48 RBC 5.22 M/mm3 (4.00-5.60) 10/29/16 05:48 Hgb 13.6 GM/dL (11.7-16.9) 10/29/16 05:48 Hct 41.2 % (35.4-49) 10/29/16 05:48 MCV 78.9 fl (80-96) L 10/29/16 05:48 MCHC 32.9 g/dl (32.0-35.9) 10/29/16 05:48 RDW 14.9 % (11.9-15.9) 10/29/16 05:48 Plt Count 177 K/MM3 (134-434) 10/29/16 05:48 MPV 9.1 fl (7.5-11.1) 10/29/16 05:48 CMP Sodium 139 mmol/L (136-145) 10/29/16 05:48 Potassium 3.7 mmol/L (3.5-5.1) 10/29/16 05:48 Chloride 104 mmol/L (98-107) 10/29/16 05:48 Carbon Dioxide 26 mmol/L (21-32) 10/29/16 05:48 Anion Gap 9 (8-16) 10/29/16 05:48 BUN 27 mg/dL (7-18) H 10/29/16 05:48 Creatinine 1.5 mg/dL (0.7-1.3) H 10/29/16 05:48 Creat Clearance w eGFR 59.08 (>60) 10/29/16 05:48 Calcium 8.6 mg/dL (8.5-10.1) 10/29/16 05:48 Total Bilirubin 0.3 mg/dL (0.2-1.0) 10/29/16 05:48 AST 19 U/L (15-37) 10/29/16 05:48 ALT 19 U/L (12-78) 10/29/16 05:48 Alkaline Phosphatase 89 U/L (45-117) 10/29/16 05:48 Total Protein 8.0 g/dl (6.4-8.2) 10/29/16 05:48 Albumin 4.2 g/dl (3.4-5.0) 10/29/16 05:48 - RADIOLOGY EXAM: Head CT IMPRESSION: Normal exam. Plan: 21 year old male with no significant past medical history, who presents to the emergency department s/p seizure event in the context of substance use. The patients brother reports he went into the patients room because he heard the thumping of a foot on the floor. When the brother arrived to the room, he reports finding the patient in a full generalized tonic-clonic seizure for approximately 5 minutes. UTOX was positive for opiates and THC Drug cessation discussed EEG normal Seizure precaution Would not start AED for first time event CT negative Labs otherwise normal Patient at baseline
--- NOTE | 2016-10-30 11:35 | PN ---
Progress Note, Physician History of Present Illness: Pt seen and examined at bedside. He is awake and alert. He has not had any seizures. He denies shortness of breath. He denies dysuria. - Current Medication List Current Medications: Active Medications Acetaminophen (Tylenol -) 650 mg PO Q4H PRN PRN Reason: FEVER OR PAIN Sodium Chloride (Normal Saline -) 1,000 mls @ 100 mls/hr IV ASDIR ASH Last Admin: 10/30/16 10:16 Dose: Not Given Ondansetron HCl (Zofran Injection) 4 mg IVPB Q6H PRN PRN Reason: NAUSEA - Objective Vital Signs: Vital Signs Temperature 98.5 F 10/30/16 06:00 Pulse Rate 73 10/30/16 06:00 Respiratory Rate 20 10/30/16 06:00 Blood Pressure 101/74 10/30/16 06:00 O2 Sat by Pulse Oximetry (%) 100 10/29/16 21:00 Constitutional: Yes: Calm Eyes: Yes: Conjunctiva Clear HENT: Yes: Atraumatic Neck: Yes: Supple Cardiovascular: Yes: S1, S2 Respiratory: Yes: CTA Bilaterally Gastrointestinal: Yes: Normal Bowel Sounds, Soft Genitourinary: Yes: WNL Musculoskeletal: Yes: WNL Extremities: Yes: WNL Edema: No Integumentary: Yes: WNL Neurological: Yes: Oriented Psychiatric: Yes: Oriented Labs: CBC, BMP 10/30/16 08:20 INR, PTT INR 0.96 (0.82-1.09) 10/29/16 05:48 Problem List - Problems (1) Tonic clonic seizures Code(s): G40.409 - OTH GENERALIZED EPILEPSY, NOT INTRACTABLE, W/O STAT EPI (2) LELAND (acute kidney injury) Code(s): N17.9 - ACUTE KIDNEY FAILURE, UNSPECIFIED (3) Proteinuria Code(s): R80.9 - PROTEINURIA, UNSPECIFIED (4) Microscopic hematuria Code(s): R31.2 - OTHER MICROSCOPIC HEMATURIA * DO NOT USE * Assessment/Plan Current Medications Generic Name Dose Route Start Last Admin Trade Name Freq PRN Reason Stop Dose Admin Acetaminophen 650 mg 10/29/16 09:46 Tylenol - PO Q4H PRN FEVER OR PAIN Sodium Chloride 1,000 mls @ 100 mls/hr 10/29/16 10:00 10/30/16 10:16 Normal Saline - IV Not Given ASDIR ASH Ondansetron HCl 4 mg 10/29/16 09:46 Zofran Injection IVPB Q6H PRN NAUSEA Laboratory Tests 10/29/16 10/29/16 10/29/16 17:00 17:00 17:00 Urine Color Straw Urine Appearance Clear Urine pH 5.0 Ur Specific [place] 1.016 Urine Protein Negative Urine Glucose (UA) Negative Urine Ketones Negative Urine Blood Negative Urine Nitrite Negative Urine Bilirubin Negative Urine Urobilinogen Negative Ur Leukocyte Esterase Negative Ur Random Sodium 55 Urine Creatinine 144.0 Protein/Creatinin Ratio 0.076 Impression 1. LELAND likely dehydration 2. seizure 3. multi drug use including marijuana 4. proteinuria 5. microscopic hematuria Plan - renal function is improved - repeat ua is negative for blood or protein - etiology likely dehydration, pt did however have an active urinary sediment - will see pt in office for follow up - advised pt not to use any recreational drugs - FENa is 0.41 percent which is consistent with pre-renal disease - will follow Dr Shetty
--- NOTE | 2016-10-30 12:29 | DS ---
Physical Exam: SUBJECTIVE: Patient seen and examined at bedside. Has no complaints. Denies N/V/ F/C, CP, SOB, abd pain, diarrhea, constipation, headache, dizziness. Feels like he is back at baseline. OBJECTIVE: Vital Signs Temperature 97.9 F 10/30/16 10:00 Pulse Rate 68 10/30/16 10:00 Respiratory Rate 18 10/30/16 10:00 Blood Pressure 134/88 10/30/16 10:00 O2 Sat by Pulse Oximetry (%) 100 10/30/16 10:00 PHYSICAL EXAM GENERAL: The patient is awake, alert, and fully oriented, in no acute distress. HEAD: Normal with no signs of trauma. EYES: PERRL, extraocular movements intact, sclera anicteric, conjunctiva clear. ENT: Ears normal, nares patent, oropharynx clear without exudates, moist mucous membranes. NECK: Trachea midline, full range of motion LUNGS: Breath sounds equal, clear to auscultation bilaterally, no wheezes, no crackles, no accessory muscle use. HEART: Regular rate and rhythm, S1, S2 without murmur, rub or gallop. ABDOMEN: Soft, nontender, nondistended, normoactive bowel sounds, no guarding, no rebound, no hepatosplenomegaly, no masses. EXTREMITIES: 2+ pulses, warm, well-perfused, no edema. 5/5 B/L UE and LE strength. NEUROLOGICAL: Normal speech, gait not observed. PSYCH: Normal mood, normal affect. SKIN: Warm, dry, normal turgor, no rashes or lesions noted. LABS Laboratory Results - last 24 hr 10/29/16 10/29/16 10/29/16 17:00 17:00 17:00 Sodium Potassium Chloride Carbon Dioxide Anion Gap BUN Creatinine Creat Clearance w eGFR Random Glucose Calcium Total Bilirubin AST ALT Alkaline Phosphatase Total Protein Albumin Urine Color Straw Urine Appearance Clear Urine pH 5.0 Ur Specific [place] 1.016 Urine Protein Negative Urine Glucose (UA) Negative Urine Ketones Negative Urine Blood Negative Urine Nitrite Negative Urine Bilirubin Negative Urine Urobilinogen Negative Ur Leukocyte Esterase Negative U Random Total Protein 11 Ur Random Sodium 55 Ur Random Potassium 12.8 Ur Random Chloride 50 Urine Creatinine 144.0 Protein/Creatinin Ratio 0.076 10/30/16 08:20 Sodium 141 Potassium 3.9 Chloride 107 Carbon Dioxide 26 Anion Gap 8 BUN 14 D Creatinine 1.2 Creat Clearance w eGFR > 60 Random Glucose 89 Calcium 8.3 L Total Bilirubin 0.7 D AST 27 D ALT 17 Alkaline Phosphatase 52 D Total Protein 6.8 Albumin 3.7 Urine Color Urine Appearance Urine pH Ur Specific [place] Urine Protein Urine Glucose (UA) Urine Ketones Urine Blood Urine Nitrite Urine Bilirubin Urine Urobilinogen Ur Leukocyte Esterase U Random Total Protein Ur Random Sodium Ur Random Potassium Ur Random Chloride Urine Creatinine Protein/Creatinin Ratio HOSPITAL COURSE: Date of Admission:10/29/16 Date of Discharge: 10/30/16 21 y/o M presented to ER after witnessed seizure which last for 5 min in his home at approximately 4:20 am before presenting to ER. This is the first time he has had a seizure. He did not bite his tongue, or lose control of bowels or urine. He does not remember episode and felt tired after seizures stopped. The next thing he remembered after the seizure was being in the hospital. Pt had half of a vicodin at a [employer] party the night before and smokes marijuana. Denies alcohol use or any other drug use. Pt had UTox done which showed positive for opiates and marijuana. He had no fever, white count, no shift in wbc, trop neg x1, ck-mk and cpk wnl, BUN/Cr were elevated at 27/1.5. UA showed 2+ protein and 1+ blood, repeat UA next day was negative for protein and blood. Pt had head CT, CXR, and Renal U/S which were all negative for pathology. He was treated with iv keppra for seizure and IVF for LELAND. BUN/Cr came down to 14/1.2 after hydration. Pt seen by Dr. Shetty who he recommended pt follow up as outpatient for LELAND vs or other underlying kidney disease. Pt was also seen by Dr. Fritz who advised that at this time would not start AEDs. EEG also done which was normal. Pt most likely had full generalized tonic-clonic seizure at home. Pt was advised to stop illicit drug use, drink water, f/u with Dr. Shetty, Dr. Fritz both w/in 1 week. Pt does not have PCP and Dr. Tidwell recommended as PCP. 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 It is important to stop any substances, recreational drugs that may illicit seizures as was discussed in the hospital. You will need to follow up with Dr. Shetty (fish cutter) to continue to assess your kidney function. Make an appointment to see him in 1 week. You will need to follow up with Dr. Fritz (neurology) due to your new onset seizure. As this is your first seizure, new medications will not be started. Continue to stay hydrated and drink plenty of water especially due to your kidney injury that was noted on the labwork. You will also need to see a primary care doctor. You can see Dr. Tidwell for primary care. If you have another seizure come back to the ER. Referrals: Jose Tidwell MD [Staff Physician] - Bryn Fritz MD [Staff Physician] - 1 Week Danielle Shetty MD [Staff Physician] - 1 Week Disposition: HOME - Home Medications Comprehensive Discharge Medication List: Ambulatory Orders NK [No Known Home Medication] 10/29/16 This patient is new to me today: Yes Date on this admission: 10/30/16 Emergency Visit: Yes ED Registration Date: 10/29/16 Care time: The patient presented to the Emergency Department on the above date and was hospitalized for further evaluation of their emergent condition. Critical Care patient: No - Discharge Referral Referred to [facility] Yes Physician Referral: Jose Tidwell MD (Int Med)
[2016-10-30 14:48] VITALS: BP 136/93; PULSE 58; TEMP 98.5
== END 2016-10-30 14:57 | disposition home or self-care (01) ==
LOC: JER 05:02 → JERBED 08:49 → J8W 12:05
PROVIDERS: ADMIT Internal Medicine; ATTEND Internal Medicine
PROC: 4A00X4Z Measurement of Central Nervous Electrical Activity, External Approach (ICD-10-PCS; principal; 2016-10-29)
DX: G40.409 Other generalized epilepsy and epileptic syndromes, not intractable, without status epilepticus (principal); E86.0 Dehydration; N17.9 Acute kidney failure, unspecified; F12.90 Cannabis use, unspecified, uncomplicated; R80.9 Proteinuria, unspecified
CPT/HCPCS: 36415; 70450-TC; 71010-TC; 76775-TC; 80048; 80053; 80307; 81003; 81015; 82436; 82550; 82553; 82570; 84133; 84156; 84300; 84484; 85025; 85610; 86850; 86900; 86901; 93005; 93010; 95816; 99284-25; G0378

== ENCOUNTER 2016-12-23 08:59 | Emergency (ER) | payer SELFPAY ==
[2016-12-23 09:13] VITALS: TEMP 98; BMI 28.2
--- NOTE | 2016-12-23 09:45 | PDOC ---
History of Present Illness - General History Source: Patient Exam Limitations: No Limitations - History of Present Illness Initial Comments: 12/23/16 10:01 The patient is a 21-year-old man, accompanied by his mother, with a past medical history of chronic kidney injury and seizure (first episode on 2016) who presents to the emergency department for further evaluation via EMS for further evaluation of witnessed seizure event. Patient shares a room with his brother. Patients brother woke up and noticed that the patient was lying prone and have a seizure with associated bladder incontinence. Patient was in this ED on 10/29/2016 for similar symptoms. Head CT was performed and was negative and he was advised to follow up with Neurology, for which he admits that he has not done so. He does not remember if we smoked Marijuana yesterday. Currently, he complaints of a mild headache and lip discomfort, as he bit his lip during the event. No family history of epilepsy. He denies chest pain, SOB, dizziness, lightheadedness or palpitations. He denies nausea, vomiting, diarrhea, fever, chills, cough, visual changes, bowel incontinence or head injury. Allergies: NKDA Past Surgical History: None reported Social History: No tobacco and ETOH use. Marijuana use. <My Mckeon - Last Filed: 12/23/16 11:47> - General History Source: Patient, Old Records Exam Limitations: No Limitations <Hollie Meek - Last Filed: 12/23/16 13:26> - General Chief Complaint: Seizure Stated Complaint: seizure Time Seen by Provider: 12/23/16 09:19 Past History <My Mckeon - Last Filed: 12/23/16 11:47> - Past Medical History Seizures: Yes (ONE ON 10/31/16.) - Psycho/Social/Smoking Cessation Hx Anxiety: No Suicidal Ideation: No Smoking Status: No Smoking History: Never smoked Have you smoked in the past 12 months: No Number of Cigarettes Smoked Daily: 0 Hx Alcohol Use: No Drug/Substance Use Hx: Yes (MARIJUANA) Substance Use Type: Marijuana Hx Substance Use Treatment: No <Hollie Meek - Last Filed: 12/23/16 13:26> - Past Medical History Allergies/Adverse Reactions: Allergies Allergy/AdvReac Type Severity Reaction Status Date / Time No Known Allergies Allergy Verified 12/23/16 09:01 Home Medications: Ambulatory Orders Phenytoin Sodium Extended 300 mg PO DAILY #90 capsule 12/23/16 Review of Systems - Review of Systems Able to Perform ROS?: Yes Comments:: 12/23/16 10:03 CONSTITUTIONAL: Absent: fever, chills, diaphoresis, generalized weakness, malaise, loss of appetite HEENT: Absent: rhinorrhea, nasal congestion, throat pain, throat swelling, difficulty swallowing, mouth swelling, ear pain, eye pain, visual Changes CARDIOVASCULAR: Absent: chest pain, syncope, palpitations, irregular heart rate , lightheadedness, peripheral edema RESPIRATORY: Absent: cough, shortness of breath, dyspnea with exertion, orthopnea, wheezing, stridor, hemoptysis GASTROINTESTINAL:Absent: abdominal pain, abdominal distension, nausea, vomiting , diarrhea, constipation, melena, hematochezia GENITOURINARY: Absent: dysuria, frequency, urgency, hesitancy, hematuria, flank pain, genital pain MUSCULOSKELETAL: Absent: myalgia, arthralgia, joint swelling SKIN: Absent: rash, itching, pallor HEMATOLOGIC/IMMUNOLOGIC: Absent: easy bleeding, easy bruising, lymphadenopathy, frequent infections ENDOCRINE:Absent: unexplained weight gain, unexplained weight loss, heat intolerance, cold intolerance NEUROLOGIC: Present: Headache. Seizure. Bladder Incontinence. Absent: headache, focal weakness or paresthesias, dizziness, unsteady gait, mental status changes , bowel incontinence PSYCHIATRIC: Absent: anxiety, depression, suicidal or homicidal ideation, hallucinations <My Mckeon - Last Filed: 12/23/16 11:47> *Physical Exam - Vital Signs Last Vital Signs Temp Pulse Resp BP Pulse Ox 98 F 88 18 133/66 98 12/23/16 09:01 12/23/16 09:01 12/23/16 09:01 12/23/16 09:01 12/23/16 09:01 - Physical Exam Comments: 12/23/16 10:03 GENERAL: Well developed, well nourished. Awake and alert. No acute distress. HEENT: Normocephalic, atraumatic. PERRLA, EOMI. No conjunctival pallor. Sclera are non-icteric. Moist mucous membranes. Oropharynx is clear. NECK: Supple. Full ROM. No JVD. CARDIOVASCULAR: Regular rate and rhythm. No murmurs, rubs, or gallops. PULMONARY: No evidence of respiratory distress. Lungs clear to auscultation bilaterally. No wheezing, rales or rhonchi. ABDOMINAL: Soft. Non-tender. Non-distended. No rebound or guarding. No organomegaly. Normoactive bowel sounds. MUSCULOSKELETAL: Normal range of motion at all joints. No bony deformities or tenderness. No CVA tenderness. EXTREMITIES: No cyanosis. No clubbing. No edema. No calf tenderness. SKIN: Warm and dry. Normal capillary refill. No rashes. No jaundice. NEUROLOGICAL: Alert, awake, appropriate. Cranial nerves 2-12 intact. Normal speech. PSYCHIATRIC: Cooperative. Good eye contact. Appropriate mood and affect. <My Mckeon - Last Filed: 12/23/16 11:47> - Vital Signs Last Vital Signs Temp Pulse Resp BP Pulse Ox 98 F 88 18 133/66 98 12/23/16 09:01 12/23/16 09:01 12/23/16 09:01 12/23/16 09:01 12/23/16 09:01 <Hollie Meek - Last Filed: 12/23/16 13:26> ED Treatment Course - LABORATORY CBC & Chemistry Diagram: 12/23/16 11:20 12/23/16 11:20 <My Mckeon - Last Filed: 12/23/16 11:47> - LABORATORY CBC & Chemistry Diagram: 12/23/16 11:20 12/23/16 11:20 <Hollie Meek - Last Filed: 12/23/16 13:26> Medical Decision Making - Medical Decision Making 12/23/16 10:21 21-year-old male with history of chronic kidney injury and seizure times one in October presents to the emergency department status post witnessed generalized tonic-clonic seizure today with urinary incontinence and biting of his lip. Differential diagnosis includes but is not limited to: Epilepsy, electrolyte abnormality, intoxication, toxic/metabolic derangement. Plan: 1. Labs 2. Will load with fosphenytoin given that the patient was not on antiepileptics in the past and this is his second seizure 3. Observe and reevaluate 12/23/16 13:25 Addendum: The labs were reviewed and are noted in the EMR. The phosphorus was low and therefore the patient was given K-Phos. He was loaded with Cerebyx and an Rx for phenytoin was sent to his pharmacy. I have reinforced the need to follow-up with neurology and I have instructed the patient to NOT drive a car or operate any heavy machinery until cleared by neurology. RTED if Sx persist, worsen or new Sx arise. <Hollie Meek - Last Filed: 12/23/16 13:26> *DC/Admit/Observation/Transfer - Attestations Scribe Attestion: 12/23/16 10:03 Documentation prepared by My Mckeon, acting as medical office technology instructor for Hollie Meek MD. <My Mckeon - Last Filed: 12/23/16 11:47> - Discharge Dispostion Admit: No - Attestations Physician Attestion: 12/23/16 10:21 I, Dr. Hollie Meek, attest that the scribes documentation that appears above has been prepared under my direction and personally reviewed by me in its entirety. I confirmed that the note above accurately reflects all work, treatment, procedures, and medical decision-making performed by me. <Hollie Meek - Last Filed: 12/23/16 13:26> Diagnosis at time of Disposition: Tonic clonic seizures, Hypophosphatemia - Discharge Dispostion Disposition: HOME Condition at time of disposition: Stable - Prescriptions Prescriptions: Phenytoin Sodium Extended 300 mg PO DAILY #90 capsule - Patient Instructions Printed Discharge Instructions: DI for Seizure Disorder -- Adult Additional Instructions: You have been diagnosed with seizures. You are being prescribed Phenytoin ER 300mg--take one tablet daily. Follow-up with neurology: call for an appointment --[phone]. Refrain from alcohol use, drug use as this lowers the seizure threshold. You should NOT operate a motor vehicle or heavy mechinery until cleared by a neurologist. Return to the ED if your symptoms persist, worsen or new symptoms arise.
[2016-12-23] MEDS ORDERED: ACETAMINOPHEN 325 MG TABLET (FP) ONE (10:15)
[2016-12-23] MEDS: ACETAMINOPHEN 500 MG TABLET (FP) PO ONE (10:25)
[2016-12-23] MEDS: FOSPHENYTOIN SODIUM 1,000 MG in SODIUM CHLORIDE 100 ML IVPB ONE ×2 (10:28→11:15)
[2016-12-23 10:51] LABS: URINE APPEARANCE CLEAR; URINE BILIRUBIN NEGATIVE (NEGATIVE); URINE COLOR STRAW; URINE GLUCOSE (UA) NEGATIVE (NEGATIVE); URINE KETONE NEGATIVE (NEGATIVE); URINE LEUK ESTERASE NEGATIVE (NEGATIVE); URINE NITRITE NEGATIVE (NEGATIVE); URINE PROTEIN NEGATIVE (NEGATIVE); URINE UROBILINOGEN NEGATIVE E.U./dl (0.2-1.0)
[2016-12-23 11:08] LABS: URINE BLOOD 1+ (NEGATIVE)
[2016-12-23 11:10] LABS: URINE MUCUS RARE; URINE RBC <1 /hpf (0-3); URINE WBC <1 /hpf (3-5)
[2016-12-23 11:35] LABS: BASOPHIL 0.3 % (0-2.0); EOSINOPHIL 0.2 % (0-4.5); MCH 25.2 pg (25.7-33.7); MCHC 31.9 g/dl (32.0-35.9); MEAN CELL VOLUME 79.1 fl (80-96); MEAN PLT VOLUME 8.9 fl (7.5-11.1); NEUTROPHILS 81.5 % (42.8-82.8); PLATELET COUNT 136 K/MM3 (134-434); WHITE BLOOD COUNT 6.4 K/mm3 (4.0-10.0)
[2016-12-23 12:01] LABS: ALBUMIN 3.9 g/dl (3.4-5.0); ANION GAP 8 (8-16); CALCIUM 8.6 mg/dL (8.5-10.1); CO2 26 mmol/L (21-32); COCKROFT - GAULT 126.8; CREATININE 1.3 mg/dL (0.7-1.3); GLUCOSE,RANDOM 80 mg/dL (74-106); MAGNESIUM 2.7 mg/dL (1.8-2.4); SGOT/AST 22 U/L (15-37); SGPT/ALT 18 U/L (12-78)
[2016-12-23 12:07] LABS: ALK PHOS 56 U/L (45-117); BILIRUBIN,TOTAL 0.7 mg/dL (0.2-1.0); TOT PROT 7.6 g/dl (6.4-8.2)
[2016-12-23] MEDS: NAPH,MB-DB/K PH,MBDB POWDER PACKET PO ONE (13:36)
[2016-12-23 13:38] VITALS: BP 132/61; PULSE 68
== END 2016-12-23 13:39 | disposition home or self-care (01) ==
LOC: JER 08:59
PROC: 3E033GC Introduction of Other Therapeutic Substance into Peripheral Vein, Percutaneous Approach (ICD-10-PCS; principal; 2016-12-23)
DX: G40.802 Other epilepsy, not intractable, without status epilepticus (principal); E83.39 Other disorders of phosphorus metabolism
CPT/HCPCS: 36415; 80053; 81003; 81015; 83735; 84100; 85025; 99282-25

== ENCOUNTER 2017-08-06 07:11 | Emergency (ER) | payer SELFPAY ==
[2017-08-06 07:40] VITALS: BMI 22.3
[2017-08-06] MEDS ORDERED: levETIRAcetam 500 MG TABLET (FP) PO ONE ×2 (08:36→09:29)
[2017-08-06] MEDS ORDERED: ACETAMINOPHEN 325 MG TABLET (FP) PO ONE (08:44)
[2017-08-06] MEDS ORDERED: ACETAMINOPHEN 325 MG TABLET (FP) ONE (09:28)
[2017-08-06 09:37] LABS: BASOPHIL 0.2 % (0-2.0); EOSINOPHIL 0.1 % (0-4.5); MCH 25.7 pg (25.7-33.7); MCHC 32.1 g/dl (32.0-35.9); MEAN CELL VOLUME 80.1 fl (80-96); MEAN PLT VOLUME 8.8 fl (7.5-11.1); NEUTROPHILS 80.2 % (42.8-82.8); PLATELET COUNT 140 K/MM3 (134-434); RDW 14.8 % (11.9-15.9)
[2017-08-06 10:03] LABS: ANION GAP 5 (8-16); CALCIUM 8.7 mg/dL (8.5-10.1); CO2 27 mmol/L (21-32); CREATININE 1.3 mg/dL (0.7-1.3); GLUCOSE,RANDOM 87 mg/dL (74-106); MAGNESIUM 2.5 mg/dL (1.8-2.4)
--- NOTE | 2017-08-06 10:55 | PDOC ---
History of Present Illness - General Chief Complaint: Seizure Stated Complaint: SEIZURE Time Seen by Provider: 08/06/17 07:24 History Source: Patient, Parent(s) Exam Limitations: No Limitations - History of Present Illness Initial Comments: 08/06/17 10:49 CHIEF COMPLAINT: Generalized seizure HISTORY OF PRESENT ILLNESS: 22-year-old man has a history of seizures since October of this year. He comes in now with his third seizure. He was at home this morning sleeping in bed, his brother was in the same room, and he had a generalized seizure with diffuse tonic-clonic movements. There were no injuries. There was no incontinence. There was no tongue biting. EMS was called and he was brought to the emergency room. Currently he has a mild diffuse headache, which is what he gets after each of his seizures. This is the same as his previous postictal headaches. There has been no fever. There has been no head trauma. There is no neck pain or stiffness. Of note, the patient presented with his first seizure last October. EEG was unremarkable. CT scan of the head was unremarkable. He was prescribed medication, but he did not have insurance and did not fill the medication. He had a second seizure in December. Currently he is going to school [facility] [employer]. He has not had any seizures this fall while at school. 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 REVIEW OF SYSTEMS: GENERAL/CONSTITUTIONAL: No fever or chills. No weakness. No weight change. HEAD, EYES, EARS, NOSE AND THROAT: No change in vision. No ear pain or discharge. No sore throat. CARDIOVASCULAR: No chest pain or shortness of breath. RESPIRATORY: No cough, wheezing, or hemoptysis. GASTROINTESTINAL: No nausea, vomiting, diarrhea or constipation. No rectal bleeding. GENITOURINARY: No dysuria, frequency, or change in urination. MUSCULOSKELETAL: No joint or muscle swelling or pain. No neck or back pain. SKIN AND BREASTS: No rash or easy bruising. NEUROLOGIC: + headache, no vertigo, loss of consciousness, or loss of sensation. + Seizure today, + seizures in the past PSYCHIATRIC: No depression or anxiety. ENDOCRINE: No increased thirst. No abnormal weight change. HEMATOLOGIC/LYMPHATIC: No anemia, easy bleeding, or history of blood clots. ALLERGIC/IMMUNOLOGIC: No hives or skin allergy. No latex allergy. Past History - Past Medical History Allergies/Adverse Reactions: Allergies Allergy/AdvReac Type Severity Reaction Status Date / Time No Known Allergies Allergy Verified 12/23/16 09:01 Home Medications: Ambulatory Orders Levetiracetam [Keppra -] 500 mg PO BID #60 tablet 08/06/17 Seizures: Yes (ONE ON 10/31/16.) - Suicide/Smoking/Psychosocial Hx Smoking Status: No Smoking History: Unknown if ever smoked Have you smoked in the past 12 months: No Number of Cigarettes Smoked Daily: 0 Hx Alcohol Use: No Drug/Substance Use Hx: Yes ([facility]) Substance Use Type: Marijuana Hx Substance Use Treatment: No *Physical Exam - Vital Signs Last Vital Signs Temp Pulse Resp BP Pulse Ox 97.9 F 79 16 132/71 97 08/06/17 07:38 08/06/17 07:38 08/06/17 07:38 08/06/17 07:38 08/06/17 07:38 - Physical Exam Comments: 08/06/17 10:51 GENERAL: The patient is awake, alert, and fully oriented, in no acute distress. HEAD: Normal with no signs of trauma. EYES: Pupils equal, round and reactive to light, extraocular movements intact, sclera anicteric, conjunctiva clear. ENT: Ears normal, nares patent, oropharynx clear without exudates. Tongue normal without lacerations. Moist mucous membranes. NECK: Normal range of motion, supple without lymphadenopathy, JVD, or masses. LUNGS: Breath sounds equal, clear to auscultation bilaterally. No wheezes, and no crackles. HEART: Regular rate and rhythm, normal S1 and S2 without murmur, rub or gallop. ABDOMEN: Soft, nontender, normoactive bowel sounds. No guarding, no rebound. No masses. No urinary incontinence. EXTREMITIES: Normal range of motion, no edema. No clubbing or cyanosis. No cords, erythema, or tenderness. NEURO: Mental status: The patient is oriented x3. Cranial nerves: Cranial nerves II through XII are intact Motor: The upper extremities are 5 over 5 in all muscle groups. The lower extremities are 5 over 5 in all muscle groups. Sensation: Sensation is intact to light touch throughout. Cerebellar: Wbzgon-[id number]-imal is normal in both upper extremities. Heel-knee- thomas is normal in both lower extremities. Reflexes: 2+ and symmetric in the upper and lower extremities. Gait: Normal. Heel and toe walking are normal. Tandem gait is normal. PSYCH: Normal mood, normal affect. SKIN: Warm, Dry, normal turgor, no rashes or lesions noted. ED Treatment Course - LABORATORY CBC & Chemistry Diagram: 08/06/17 09:14 08/06/17 09:14 - ADDITIONAL ORDERS Additional order review: Laboratory Results 08/06/17 09:14 Sodium 142 Potassium 4.1 Chloride 110 H Carbon Dioxide 27 Anion Gap 5 L BUN 26 H D Creatinine 1.3 Random Glucose 87 Calcium 8.7 Magnesium 2.5 H 08/06/17 09:14 RBC 5.36 MCV 80.1 MCHC 32.1 RDW 14.8 MPV 8.8 Neutrophils % 80.2 Lymphocytes % 12.4 Monocytes % 7.1 Eosinophils % 0.1 Basophils % 0.2 - Medications Given in the ED: ED Medications Discontinued Medications Generic Name Dose Route Start Last Admin Trade Name Freq PRN Reason Stop Dose Admin Acetaminophen 650 mg 08/06/17 08:44 08/06/17 09:20 Tylenol - PO 08/06/17 08:45 650 mg ONCE ONE Administration Levetiracetam 500 mg 08/06/17 08:36 08/06/17 09:00 Keppra - PO 08/06/17 08:37 500 mg ONCE ONE Administration Medical Decision Making - Medical Decision Making 08/06/17 10:52 Patient presents after a generalized seizure, with a known history of the same. Patient was seen and evaluated postictal. He was awake, alert, and fully oriented with no signs of decrease in mental status post seizure. Examination including neuro exam was normal. Laboratory studies were reviewed and normal. Laboratory Results - last 24 hr 08/06/17 08/06/17 09:14 09:14 WBC 8.0 RBC 5.36 Hgb 13.8 Hct 42.9 MCV 80.1 MCH 25.7 MCHC 32.1 RDW 14.8 Plt Count 140 MPV 8.8 Neutrophils % 80.2 Lymphocytes % 12.4 Monocytes % 7.1 Eosinophils % 0.1 Basophils % 0.2 Sodium 142 Potassium 4.1 Chloride 110 H Carbon Dioxide 27 Anion Gap 5 L BUN 26 H D Creatinine 1.3 Random Glucose 87 Calcium 8.7 Magnesium 2.5 H Impression: Breakthrough seizure, noncompliance with medications. Patient now has insurance and would like to get a new prescription for antiseizure medication. He states he will get his medication through his college insurance. He will follow-up with neurology during his [place] break when he is back in [place]. *DC/Admit/Observation/Transfer Diagnosis at time of Disposition: Seizure - Discharge Dispostion Disposition: HOME Condition at time of disposition: Improved Admit: No - Prescriptions Prescriptions: Levetiracetam [Keppra -] 500 mg PO BID #60 tablet - Referrals Referrals: Jah Girard DO [Staff Physician] - 14 days - Patient Instructions Printed Discharge Instructions: DI for Seizure Disorder -- Adult Additional Instructions: You were evaluated today for a seizure. The blood test results were normal. You should take Keppra 500 mg twice a day to prevent further seizures. The medication has been sent electronically to your pharmacy at [facility]. Be sure to bring your insurance information so the medication will be covered. Follow- up with Dr. Girard, neurology, during your break next month. Return to the emergency department for any serious symptoms. - Post Discharge Activity Forms/Work/School Notes: Back to School
[2017-08-06 11:12] VITALS: BP 132/67; PULSE 72; TEMP 98.6
== END 2017-08-06 11:12 | disposition home or self-care (01) ==
LOC: JER 07:11
DX: R56.9 Unspecified convulsions (principal)
CPT/HCPCS: 36415; 80048; 83735; 85025; 99282-25

== ENCOUNTER 2017-11-07 20:15 | Emergency (ER) | payer SELFPAY ==
[2017-11-07 20:26] VITALS: BP 130/73; PULSE 82; TEMP 98; BMI 27.5
[2017-11-07] MEDS ORDERED: SODIUM CHLORIDE 1,000 ML IV STA (20:49)
[2017-11-07] MEDS ORDERED: levETIRAcetam 500 MG/5 ML INJECTION VIAL IVPB ONE ×2 (20:56→21:03)
[2017-11-07 20:59] LABS: BASO % 0.3 % (0-2.0); EOS % 0.7 % (0-4.5); HEMATOCRIT 39.4 % (35.4-49); HEMOGLOBIN 12.6 GM/dL (11.7-16.9); LYMPH % 39.2 % (8-40); MCH 25.7 pg (25.7-33.7); MCHC 31.9 g/dl (32.0-35.9); MEAN CELL VOLUME 80.6 fl (80-96); MEAN PLT VOLUME 9.5 fl (7.5-11.1); MONO % 8.4 % (3.8-10.2); NEUT % 51.4 % (42.8-82.8); PLATELET COUNT 134 K/MM3 (134-434); RBC 4.89 M/mm3 (4.00-5.60); RDW 14.6 % (11.9-15.9); WHITE BLOOD COUNT 5.8 K/mm3 (4.0-10.0)
--- NOTE | 2017-11-07 21:04 | PDOC ---
History of Present Illness - General History Source: Patient Exam Limitations: No Limitations - History of Present Illness Initial Comments: 11/07/17 21:04 The patient is a 22 year old male, with a significant past medical history of seizures (last episodes were from 10/2016, 12/2016, 07/2017), who presents to the emergency department with recent seizure today. The patient reports having prescribed medications for his seizures, but denies taking his medication, stating he has no insurance and cannot afford it. The patient reports having a 1 minute seizure earlier today, and reports having a 3 minute postictal state with headaches. He denies any head trauma. He denies biting his tongue. He denies any recent fevers, chills, or dizziness. He denies any recent nausea, vomit, diarrhea or constipation. He denies any recent chest pain or shortness of breath. He denies any recent dysuria, frequency, urgency or hematuria. Allergies: NKA Past surgical history: None reported. Social History: Previous opioid use. Primary Care Physician: None <Jose Ferris - Last Filed: 11/07/17 23:30> <Sharon Carrera - Last Filed: 11/08/17 00:04> - General Chief Complaint: Seizure Stated Complaint: SEIZURE Time Seen by Provider: 11/07/17 20:45 Past History <Jose Ferris - Last Filed: 11/07/17 23:30> - Past Medical History COPD: No Seizures: Yes (ONE ON 10/31/16.) - Suicide/Smoking/Psychosocial Hx Smoking Status: No Smoking History: Never smoked Have you smoked in the past 12 months: No Number of Cigarettes Smoked Daily: 0 Information on smoking cessation initiated: No Hx Alcohol Use: No Drug/Substance Use Hx: No Substance Use Type: Marijuana Hx Substance Use Treatment: No <Sharon Carrera - Last Filed: 11/08/17 00:04> - Past Medical History Allergies/Adverse Reactions: Allergies Allergy/AdvReac Type Severity Reaction Status Date / Time No Known Allergies Allergy Verified 11/07/17 20:26 Home Medications: Ambulatory Orders levETIRAcetam [Keppra -] 500 mg PO BID #60 tablet 08/06/17 levETIRAcetam [Keppra -] 500 mg PO BID #60 tablet 11/07/17 Review of Systems - Review of Systems Able to Perform ROS?: Yes Comments:: 11/07/17 21:04 GENERAL/CONSTITUTIONAL: No fever or chills. No weakness. HEAD, EYES, EARS, NOSE AND THROAT: No change in vision. No ear pain or discharge. No sore throat. CARDIOVASCULAR: No chest pain or shortness of breath. RESPIRATORY: No cough, wheezing, or hemoptysis. GASTROINTESTINAL: No nausea, vomiting, diarrhea or constipation. GENITOURINARY: No dysuria, frequency, or change in urination. MUSCULOSKELETAL: No joint or muscle swelling or pain. No neck or back pain. SKIN: No rash NEUROLOGIC: +seizure and headache No vertigo, loss of consciousness, or change in strength/sensation. ENDOCRINE: No increased thirst. No abnormal weight change. HEMATOLOGIC/LYMPHATIC: No anemia, easy bleeding, or history of blood clots. ALLERGIC/IMMUNOLOGIC: No hives or skin allergy. 11/07/17 23:22 <Jose Ferris - Last Filed: 11/07/17 23:30> *Physical Exam - Vital Signs Last Vital Signs Temp Pulse Resp BP Pulse Ox 98.0 F 82 18 130/73 97 11/07/17 20:22 11/07/17 20:22 11/07/17 20:22 11/07/17 20:22 11/07/17 20:22 - Physical Exam Comments: 11/07/17 21:04 GENERAL: Awake, alert, and fully oriented, in no acute distress HEAD: No signs of trauma EYES: PERRLA, EOMI, sclera anicteric, conjunctiva clear ENT: Auricles normal inspection, hearing grossly normal, nares patent, oropharynx clear without exudates. Moist mucosa NECK: Normal ROM, supple, no lymphadenopathy, JVD, or masses LUNGS: Breath sounds equal, clear to auscultation bilaterally. No wheezes, and no crackles HEART: Regular rate and rhythm, normal S1 and S2, no murmurs, rubs or gallops ABDOMEN: Soft, nontender, normoactive bowel sounds. No guarding, no rebound. No masses EXTREMITIES: Normal range of motion, no edema. No clubbing or cyanosis. No cords, erythema, or tenderness NEUROLOGICAL: Cranial nerves II through XII grossly intact. Normal speech, normal gait SKIN: Warm, Dry, normal turgor, no rashes or lesions noted. <Jose Ferris - Last Filed: 11/07/17 23:30> - Vital Signs Last Vital Signs Temp Pulse Resp BP Pulse Ox 98.0 F 82 18 130/73 97 11/07/17 20:22 11/07/17 20:22 11/07/17 20:22 11/07/17 20:22 11/07/17 20:22 <Sharon Carrera - Last Filed: 11/08/17 00:04> ED Treatment Course - LABORATORY CBC & Chemistry Diagram: 11/07/17 20:55 11/07/17 20:55 <Jose Ferris - Last Filed: 11/07/17 23:30> - LABORATORY CBC & Chemistry Diagram: 11/07/17 20:55 11/07/17 20:55 <Sharon Carrera - Last Filed: 11/08/17 00:04> Medical Decision Making - Medical Decision Making 11/07/17 23:30 Spoke with , who advised the patient take 500mg Kepra twice a day. <Jose Ferris - Last Filed: 11/07/17 23:30> *DC/Admit/Observation/Transfer - Attestations Scribe Attestion: 11/07/17 21:05 Documentation prepared by Jose Ferris, acting as medical collections specialist for Sharon Carrera MD/DO. <Jose Ferris - Last Filed: 11/07/17 23:30> <Sharon Carrera - Last Filed: 11/08/17 00:04> Diagnosis at time of Disposition: Seizure - Discharge Dispostion Disposition: HOME Condition at time of disposition: Stable - Prescriptions Prescriptions: levETIRAcetam [Keppra -] 500 mg PO BID #60 tablet - Referrals Referrals: ON STAFF,NOT [Primary Care Provider] - - Patient Instructions Printed Discharge Instructions: DI for Seizure Disorder -- Adult Additional Instructions: It is very important to take your medication. Please corn picker your medication at [facility] and take as directed Follow up with the neurologist. Our clinic is at [address] [place] [address] Call [phone] and make an appointment with neurology and general medicine - Post Discharge Activity
[2017-11-07 21:23] LABS: ALBUMIN 4.1 g/dl (3.4-5.0); ANION GAP 15 (8-16); BILIRUBIN,TOTAL 0.5 mg/dL (0.2-1.0); BLOOD UREA NITROGEN 15 mg/dL (7-18); CALCIUM 8.4 mg/dL (8.5-10.1); CHLORIDE 106 mmol/L (98-107); CO2 19 mmol/L (21-32); CREATININE 1.5 mg/dL (0.7-1.3); GLUCOSE,RANDOM 125 mg/dL (74-106); POTASSIUM 3.7 mmol/L (3.5-5.1); SGOT/AST 19 U/L (15-37); SGPT/ALT 15 U/L (12-78); SODIUM 140 mmol/L (136-145); TOT PROT 7.8 g/dl (6.4-8.2)
[2017-11-07 21:25] LABS: ALK PHOS 57 U/L (45-117)
[2017-11-07 22:18] LABS: COCAINE, UR NEGATIVE ng/ml (CUTOFF=300); METHADONE, UR NEGATIVE ng/ml (CUTOFF=300); OPIATES, URI NEGATIVE ng/ml (CUTOFF=300); PHENCYCLIDINE,URINE NEGATIVE ng/ml (CUTOFF=25); URINE AMPHETAMINES NEGATIVE ng/ml (CUTOFF=500); URINE BARBITURATES NEGATIVE ng/ml (CUTOFF=200); URINE BENZODIAZEPINES NEGATIVE ng/ml (CUTOFF=200)
[2017-11-08] MEDS ORDERED: ACETAMINOPHEN 500 MG TABLET (FP) PO STA (00:20)
[2017-11-08] MEDS ORDERED: ACETAMINOPHEN 325 MG TABLET (FP) ONE (00:22)
== END 2017-11-08 00:26 | disposition home or self-care (01) ==
LOC: JER 20:15 → SUPCPDRO 20:15 → JER 11-08 00:26
PROC: 3E0337Z Introduction of Electrolytic and Water Balance Substance into Peripheral Vein, Percutaneous Approach (ICD-10-PCS; principal; 2017-11-07)
PROC: 3E033GC Introduction of Other Therapeutic Substance into Peripheral Vein, Percutaneous Approach (ICD-10-PCS; 2017-11-07)
DX: R56.9 Unspecified convulsions (principal)
CPT/HCPCS: 36415; 80053; 80307; 82550; 82553; 84484; 85025; 99282-25

== ENCOUNTER 2018-02-15 07:29 | Emergency (ER) | payer OTHER ==
--- NOTE | 2018-02-15 07:45 | PDOC ---
History of Present Illness - General Chief Complaint: Seizure Stated Complaint: SEIZURE Time Seen by Provider: 02/15/18 07:45 History Source: Patient Exam Limitations: No Limitations - History of Present Illness Initial Comments: 02/15/18 07:40 22 year old male with a hx of seizure disorder was BIBA s/p seizure-like activity. Patient was found post-ictal and he does not remember any part of the event, only reports waking up in the ambulance with a L-sided temporal headache. Patient does not know the location of his fall or if he hit his head. Patient reports that he has a history of seizures beginning 1 year ago with no known inciting cause. His past seizures were in 10/2017, 07/2017, 12/2016, 2016. He states that his dose of Keppra was recently reduced by his neurologist , and the last time he took Keppra was yesterday morning. He is prescribed 750mg in the AM and 500mg PM. Reports that he missed his afternoon dose because he fell asleep. Denies nausea, vomiting, chest pain, shortness of breath, abdominal pain, diarrhea, fevers, chills. Denies recent travel or sick contacts. PMH: Seizure disorder PSH: none Allergies: none Smoke: marijuana only (last use yesterday) Drink: none Drugs: none Neurologist: Dr. Fritz Past History - Past Medical History Allergies/Adverse Reactions: Allergies Allergy/AdvReac Type Severity Reaction Status Date / Time No Known Allergies Allergy Verified 11/07/17 20:26 Home Medications: Ambulatory Orders levETIRAcetam [Keppra -] 500 mg PO BID #60 tablet 08/06/17 levETIRAcetam [Keppra -] 750 mg PO BID 02/15/18 COPD: No Seizures: Yes (ONE ON 10/31/16.) - Suicide/Smoking/Psychosocial Hx Smoking Status: No Smoking History: Never smoked Have you smoked in the past 12 months: No Number of Cigarettes Smoked Daily: 0 Hx Alcohol Use: No Drug/Substance Use Hx: No Substance Use Type: Marijuana Hx Substance Use Treatment: No Review of Systems - Review of Systems Able to Perform ROS?: Yes Constitutional: No: Fever HEENTM: No: Blurred Vision Respiratory: No: Shortness of Breath Cardiac (ROS): No: Chest Pain, Lightheadedness ABD/GI: No: Diarrhea, Nausea, Vomiting Neurological: Yes: Headache. No: Numbness, Weakness, Unsteady Gait, Ataxia, Dizziness *Physical Exam - Vital Signs 02/15/18 08:50 Vital Signs Temperature 97.7 F 02/15/18 07:54 Pulse Rate 79 02/15/18 07:54 Respiratory Rate 20 02/15/18 07:54 Blood Pressure 136/70 02/15/18 07:54 O2 Sat by Pulse Oximetry (%) 99 02/15/18 07:54 - Physical Exam Comments: 02/15/18 08:02 GENERAL: A&Ox3, no acute distress EYES: PERRLA, EOMI ENT: Moist mucus membranes LUNGS: CTA, no wheezes HEART: RRR, no murmurs appreciated ABDOMEN: Soft, nontender, BS present MUSCULOSKELETAL: No CVA Tenderness EXTREMITIES: 2+ pulses, no edema. NEUROLOGICAL: Cranial nerves II-XII intact. Motor strength 5/5 b/l, sensation intact. Heart Score/ECG Review - ECG Intrepretation Comment:: 02/15/18 09:06 Sinus Diego w/ 1st degree AV block, QTc 364 ED Treatment Course - LABORATORY CBC & Chemistry Diagram: 02/15/18 08:35 02/15/18 08:35 Medical Decision Making - Medical Decision Making 02/15/18 08:09 22 year old male with a hx of seizures BIBA s/p unwitnessed seizure at home. Missed evening dose of Keppra last night. -CT head w/o contrast to r/o bleed or other intracranial pathology -EKG -CBC -CMP -Trop -Mag -Phos -UA -Will give keppra 750mg now (patient's home dose) -IVF bolus with normal saline 1L 02/15/18 08:51 Patient re-evaluated at 8:51am, feels much better, headache is resolving. -CBC significant for thrombocytopenia with platelets of 108 -CMP -EKG sinus diego w/ sinus arrhythmia and 1st degree AV block -Head CT negative for acute pathology Disposition: -patient re-evaluated and has significantly improved. Will discharge home with instructions to followup with his PCP, neurologist, and counseling on not missing medication doses. *DC/Admit/Observation/Transfer Diagnosis at time of Disposition: Seizure - Discharge Dispostion Disposition: HOME Condition at time of disposition: Improved Decision to Admit order: No - Referrals Referrals: Bandar Brown MD [Staff Physician] - Bryn Fritz MD [Staff Physician] - - Patient Instructions Printed Discharge Instructions: DI for Seizure Disorder -- Adult Additional Instructions: You've been seen in the ED for seizure. -This is likely a result of not taking your Keppra at every required dose -Please make sure to take Keppra 750mg every morning and 500mg every evening as prescribed by your neurologist -Please make an appointment with your neurologist within 1 week of discharge -Please make an appointment with your primary care physician within 1 week of discharge If you experience any further seizures or seizure-like activity, please return to the emergency room immediately. - Post Discharge Activity
[2018-02-15] MEDS ORDERED: levETIRAcetam 500 MG TABLET (FP) PO ONE ×2 (08:07→08:28)
[2018-02-15] MEDS ORDERED: SODIUM CHLORIDE 1,000 ML IV STA (08:08)
[2018-02-15 08:16] VITALS: BP 136/70; PULSE 79; TEMP 97.7; BMI 26.9
[2018-02-15] MEDS ORDERED: ACETAMINOPHEN 325 MG TABLET (FP) PO ONE (08:17)
[2018-02-15] MEDS ORDERED: ACETAMINOPHEN 325 MG TABLET (FP) ONE (08:28)
[2018-02-15 08:44] LABS: BASO % 0.6 % (0-2.0); EOS % 0.7 % (0-4.5); HEMATOCRIT 37.4 % (35.4-49); HEMOGLOBIN 12.2 GM/dL (11.7-16.9); LYMPH % 15.5 % (8-40); MCHC 32.6 g/dl (32.0-35.9); MEAN CELL VOLUME 79.7 fl (80-96); MEAN PLT VOLUME 8.9 fl (7.5-11.1); MONO % 5.9 % (3.8-10.2); NEUT % 77.3 % (42.8-82.8); PLATELET COUNT 108 K/MM3 (134-434); RBC 4.69 M/mm3 (4.00-5.60); RDW 14.7 % (11.9-15.9); WHITE BLOOD COUNT 5.7 K/mm3 (4.0-10.0)
[2018-02-15 08:45] LABS: URINE APPEARANCE CLEAR; URINE BILIRUBIN NEGATIVE (<2.0 mg/dL); URINE BLOOD 1+ (NEGATIVE); URINE COLOR STRAW; URINE GLUCOSE (UA) NEGATIVE (NEGATIVE); URINE KETONE NEGATIVE (NEGATIVE); URINE LEUK ESTERASE NEGATIVE (NEGATIVE); URINE NITRITE NEGATIVE (NEGATIVE); URINE PROTEIN NEGATIVE (NEGATIVE); URINE UROBILINOGEN NEGATIVE mg/dL (0.2-1.0)
[2018-02-15 08:51] LABS: URINE MUCUS RARE
[2018-02-15 09:57] LABS: COCAINE, UR NEGATIVE ng/ml (CUTOFF=300); METHADONE, UR NEGATIVE ng/ml (CUTOFF=300); OPIATES, URI NEGATIVE ng/ml (CUTOFF=300); PHENCYCLIDINE,URINE NEGATIVE ng/ml (CUTOFF=25); URINE AMPHETAMINES NEGATIVE ng/ml (CUTOFF=500); URINE BARBITURATES NEGATIVE ng/ml (CUTOFF=200); URINE BENZODIAZEPINES NEGATIVE ng/ml (CUTOFF=200)
--- NOTE | 2018-02-15 10:08 | PDOC ---
Attending Attestation - Resident Resident Name: Calvin Roger - ED Attending Attestation I have performed the following: I have examined & evaluated the patient, The case was reviewed & discussed with the resident, I agree w/resident's findings & plan - HPI HPI: 02/15/18 10:05 22-year-old male with history of seizures on Keppra presents status post unwitnessed seizure this morning. Patient had dose lowered by his neurologist about 2 weeks ago, missed his dose last night, and reportedly had unwitnessed seizure and was found on the floor in the bathroom this morning. Had his usual postictal state and now has his usual post ictal left temporal headache, otherwise no preceding infectious or dehydration complaints, denies any head injury but unsure, no vision change/neck stiffness/speech change/focal weakness. - Physicial Exam PE: 02/15/18 10:06 Vital signs normal Exam is atraumatic He is well-appearing and coherent, but still slightly disoriented asking the month, but knowing the year Neurological exam is nonfocal - Medical Decision Making 02/15/18 10:07 22-year-old male with seizure disorder presents with seizure, now with improving postictal state. Question injury, episode was unwitnessed. Likely precipitated by missed dose of Keppra last night, but should be further evaluated in light of his recently decreased dosing. No other red flags on history or physical exam. CBC is within normal limits, urine tox positive for marijuana, chemistries pending CT head is normal Given Keppra and IV fluids Feels better, will dispo accordingly Heart Score/ECG Review #1 ECG reviewed & interpreted by me at: 08:51 General ECG Interpretation: Sinus Rhythm, Normal Rate (56), Normal Intervals ( 1st degree av block at 228, qtc 364), No acute ischemic changes
[2018-02-15 11:38] LABS: ALBUMIN 3.7 g/dl (3.4-5.0); ANION GAP 8 (8-16); BILIRUBIN,TOTAL 0.3 mg/dL (0.2-1.0); BLOOD UREA NITROGEN 19 mg/dL (7-18); CALCIUM 8.1 mg/dL (8.5-10.1); CHLORIDE 111 mmol/L (98-107); CO2 22 mmol/L (21-32); CREATININE 1.1 mg/dL (0.7-1.3); GLUCOSE,RANDOM 66 mg/dL (74-106); MAGNESIUM 2.2 mg/dL (1.8-2.4); PHOSPHOROUS 1.5 mg/dL (2.5-4.9); POTASSIUM 3.6 mmol/L (3.5-5.1); SGOT/AST 18 U/L (15-37); SGPT/ALT 21 U/L (12-78); SODIUM 141 mmol/L (136-145); TOT PROT 7.2 g/dl (6.4-8.2)
[2018-02-15 11:41] LABS: ALK PHOS 56 U/L (45-117)
--- NOTE | 2018-02-15 12:13 | EKG ---
Test Reason : Blood Pressure : / mmHG Vent. Rate : 056 BPM Atrial Rate : 056 BPM P-R Int : 228 ms QRS Dur : 086 ms QT Int : 378 ms P-R-T Axes : 050 078 045 degrees QTc Int : 364 ms SINUS BRADYCARDIA WITH SINUS ARRHYTHMIA WITH 1ST DEGREE A-V BLOCK OTHERWISE NORMAL ECG Confirmed by MD TAYLOR, EDITH ([id number]) on 02/15/2018 12:13:05 PM Referred By: Confirmed By:EDITH VAZQUEZ MD
== END 2018-02-15 11:47 | disposition home or self-care (01) ==
LOC: JER 07:29
PROC: 3E0337Z Introduction of Electrolytic and Water Balance Substance into Peripheral Vein, Percutaneous Approach (ICD-10-PCS; principal; 2018-02-15)
DX: G40.909 Epilepsy, unspecified, not intractable, without status epilepticus (principal)
CPT/HCPCS: 36415; 70450-TC; 80053; 80307; 81003; 81015; 82550; 82553; 83735; 84100; 84484; 85025; 93005; 93010; 96360; 99283-25; J7030

== ENCOUNTER 2019-07-22 13:38 | Emergency (ER) | payer OTHER ==
[2019-07-22 13:50] VITALS: TEMP 98.2; BMI 25.6
[2019-07-22] MEDS ORDERED: SODIUM CHLORIDE 0.9% 500 ML INFUS.BAG IV ONE (16:02)
[2019-07-22] MEDS ORDERED: ACETAMINOPHEN 325 MG TABLET (FP) PO ONE (16:02)
--- NOTE | 2019-07-22 16:14 | PDOC ---
History of Present Illness - General History Source: Patient Exam Limitations: No Limitations - History of Present Illness Initial Comments: 07/22/19 16:13 24 yo M with a hx of epilepsy (patient follows Dr. Fritz; takes keppra 750 mg BID) presents to the emergency department s/p epilepsy that occurred at approximately 1:30 pm after he smoked marijuana on his couch. Per the patient, he skipped his dose last night but took his usual dose this morning. He states he was smoking marijuana (non-synthetic, from his usual dealer with usual dose) prior to the seizure episode. It was witnessed by his brother who stated it lasted 2 minutes He stayed on the couch throughout the episode. The patient had 1x other seizure prior to this episode this year. <Edmund Maher - Last Filed: 07/22/19 18:26> <Jailene Shields - Last Filed: 07/22/19 18:37> - General Chief Complaint: Seizure Stated Complaint: SEIZURE Time Seen by Provider: 07/22/19 15:23 Past History - Past Medical History Anemia: No Asthma: No Cancer: No Cardiac Disorders: No CVA: No COPD: No DVT: No Dementia: No Diabetes: No Dialysis: No GI Disorders: No Disorders: No HTN: No Hypercholesterolemia: No Kidney Stones: No Liver Disease: No Psychiatric Problems: No Seizures: Yes (ONE ON 10/31/16.) Thyroid Disease: No Lung CA: No - Immunization History Immunization Up to Date: Yes - Psycho Social/Smoking Cessation Hx Smoking Status: No Smoking History: Never smoked Have you smoked in the past 12 months: No Number of Cigarettes Smoked Daily: 0 Information on smoking cessation initiated: No Hx Alcohol Use: No Drug/Substance Use Hx: No Substance Use Type: Marijuana Hx Substance Use Treatment: No <Edmund Maher - Last Filed: 07/22/19 18:26> <Jailene Shields - Last Filed: 07/22/19 18:37> - Past Medical History Allergies/Adverse Reactions: Allergies Allergy/AdvReac Type Severity Reaction Status Date / Time No Known Allergies Allergy Verified 11/07/17 20:26 Home Medications: Ambulatory Orders levETIRAcetam [Keppra -] 750 mg PO BID 07/22/19 Review of Systems - Review of Systems Able to Perform ROS?: Yes Is the patient limited [place] proficient: No Constitutional: No: Chills, Diaphoresis, Fever, Weakness HEENTM: No: Eye Pain, Ear Pain, Nose Pain, Throat Pain, Mouth Pain Respiratory: No: Cough, Shortness of Breath, Hemoptysis Cardiac (ROS): Yes: Syncope. No: Chest Pain, Lightheadedness, Palpitations ABD/GI: No: Constipated, Diarrhea, Nausea, Rectal Bleeding, Vomiting, Tarry Stools : No: Burning, Dysuria, Hematuria, Incontinence Musculoskeletal: No: Back Pain, Joint Pain, Neck Pain Integumentary: No: Bruising, Erythema, Lesions Neurological: Yes: Seizure. No: Headache, Numbness Psychiatric: No: Change in Appetite Endocrine: No: Unexplained Weight Loss Hematologic/Lymphatic: No: Anemia <Lower Peach TreeEdmund - Last Filed: 07/22/19 18:26> *Physical Exam - Vital Signs Last Vital Signs Temp Pulse Resp BP Pulse Ox 98.2 F 91 H 17 130/62 100 07/22/19 13:46 07/22/19 13:46 07/22/19 13:46 07/22/19 13:46 07/22/19 13:46 - Physical Exam General Appearance: Yes: Nourished, Appropriately Dressed. No: Apparent Distress, Obese HEENT: positive: EOMI, JULIOCESAR, Normal Voice, Symmetrical, Pharynx Normal, Hearing Grossly Normal. negative: Pale Conjunctivae, Scleral Icterus (R), Scleral Icterus (L), Muffled/Hoarse voice, Pharyngeal Erythema, Tonsillar Exudate, Tonsillar Erythema, Excessive drooling Neck: positive: Trachea midline, Supple. negative: Tender, Lymphadenopathy (R) , Lymphadenopathy (L), Tender lateral, Tender midline Respiratory/Chest: positive: Lungs Clear, Normal Breath Sounds. negative: Chest Tender, Respiratory Distress, Accessory Muscle Use, Rhonchi, Stridor, Wheezing, Hyperresonant Cardiovascular: positive: Regular Rhythm, Regular Rate, S1, S2. negative: Systolic Murmur Gastrointestinal/Abdominal: positive: Normal Bowel Sounds, Flat, Soft. negative : Tender Lymphatic: negative: Adenopathy Musculoskeletal: positive: Normal Inspection. negative: CVA Tenderness, Vertebral Tenderness Extremity: positive: Normal Capillary Refill, Normal Inspection, Normal Range of Motion. negative: Tender Integumentary: positive: Normal Color, Dry, Warm. negative: Hives, Petechiae, Rash, Swelling, Ecchymosis Neurologic: positive: health information coder II-XII NML intact, Fully Oriented, Alert, Normal Mood/ Affect, Normal Response, Motor Strength 5/5. negative: Facial Droop, Numbness, Sensory Deficit <Edmund Maher - Last Filed: 07/22/19 18:26> - Vital Signs Last Vital Signs Temp Pulse Resp BP Pulse Ox 98.2 F 91 H 17 130/62 100 07/22/19 13:46 07/22/19 13:46 07/22/19 13:46 07/22/19 13:46 07/22/19 13:46 <Jailene Shields - Last Filed: 07/22/19 18:37> Heart Score/ECG Review #1 ECG reviewed & interpreted by me at: 18:15 General ECG Interpretation: Sinus Rhythm, Normal Rate, Normal Intervals 07/22/19 18:36 normal sinus rhythm 67 bpm, WI interval 216 ms, no ST elevations or depressions , upsloping segments. <Jailene Shields - Last Filed: 07/22/19 18:37> ED Treatment Course - LABORATORY CBC & Chemistry Diagram: 07/22/19 16:15 07/22/19 16:15 <Edmund Maher - Last Filed: 07/22/19 18:26> - LABORATORY CBC & Chemistry Diagram: 07/22/19 16:15 07/22/19 16:15 - ADDITIONAL ORDERS Additional order review: Laboratory Results 07/22/19 07/22/19 07/22/19 16:20 16:20 16:15 Sodium 139 Potassium 3.8 Chloride 108 H Carbon Dioxide 27 Anion Gap 5 L BUN 18.7 H Creatinine 1.2 Est GFR (CKD-EPI)AfAm 97.51 Est GFR (CKD-EPI)NonAf 84.13 Random Glucose 77 Calcium 8.8 Total Bilirubin 0.4 AST 23 ALT 34 Alkaline Phosphatase 54 Total Protein 7.7 Albumin 4.1 Urine Color Yellow Urine Appearance Clear Urine pH 5.5 Ur Specific [place] 1.021 Urine Protein Trace Urine Glucose (UA) Negative Urine Ketones Negative Urine Blood Negative Urine Nitrite Negative Urine Bilirubin Negative Urine Urobilinogen 0.2 Ur Leukocyte Esterase Negative Opiates Screen Negative Methadone Screen Negative Barbiturate Screen Negative Phencyclidine Screen Negative Ur Amphetamines Screen Negative MDMA (Ecstasy) Screen Negative Benzodiazepines Screen Negative Cocaine Screen Negative U Marijuana (THC) Screen Positive A* 07/22/19 16:15 RBC 4.77 MCV 80.9 MCHC 32.2 RDW 15.1 MPV 9.3 Neutrophils % 81.3 Lymphocytes % 12.0 D Monocytes % 6.3 Eosinophils % 0.1 D Basophils % 0.3 - Medications Given in the ED: ED Medications Discontinued Medications Generic Name Dose Route Start Last Admin Trade Name John PRN Reason Stop Dose Admin Acetaminophen 650 mg 07/22/19 16:02 07/22/19 16:42 Tylenol - PO 07/22/19 16:03 650 mg ONCE ONE Administration Levetiracetam 1,000 mg 07/22/19 16:38 07/22/19 16:42 Keppra - PO 07/22/19 16:39 1,000 mg ONCE ONE Administration Sodium Chloride 1,000 ml 07/22/19 16:02 07/22/19 16:42 Normal Saline - IV 07/22/19 16:03 1,000 ml ONCE ONE Administration <Jailene Shields - Last Filed: 07/22/19 18:37> Medical Decision Making - Medical Decision Making 24 yo M with a hx of epilepsy (patient follows Dr. Fritz; takes keppra 750 mg BID) presents to the emergency department s/p epilepsy that occurred at approximately 1:30 pm after he smoked marijuana on his couch. Initial vitals: Initial Vital Signs Temp Pulse Resp BP Pulse Ox 98.2 F 91 H 17 130/62 100 07/22/19 13:46 07/22/19 13:46 07/22/19 13:46 07/22/19 13:46 07/22/19 13:46 Work up ddx: seizure. likely secondary to medication non compliance. will rule out organic causes. Laboratory Tests 07/22/19 07/22/19 07/22/19 16:15 16:15 16:20 WBC 5.8 RBC 4.77 Hgb 12.5 Hct 38.6 MCV 80.9 MCH 26.1 MCHC 32.2 RDW 15.1 Plt Count 150 D MPV 9.3 Absolute Neuts (auto) 4.7 Neutrophils % 81.3 Lymphocytes % 12.0 D Monocytes % 6.3 Eosinophils % 0.1 D Basophils % 0.3 Nucleated RBC % 0 Sodium 139 Potassium 3.8 Chloride 108 H Carbon Dioxide 27 Anion Gap 5 L BUN 18.7 H Creatinine 1.2 Est GFR (CKD-EPI)AfAm 97.51 Est GFR (CKD-EPI)NonAf 84.13 Random Glucose 77 Calcium 8.8 Total Bilirubin 0.4 AST 23 ALT 34 Alkaline Phosphatase 54 Total Protein 7.7 Albumin 4.1 Urine Color Urine Appearance Urine pH Ur Specific [place] Urine Protein Urine Glucose (UA) Urine Ketones Urine Blood Urine Nitrite Urine Bilirubin Urine Urobilinogen Ur Leukocyte Esterase Opiates Screen Negative Methadone Screen Negative Barbiturate Screen Negative Phencyclidine Screen Negative Ur Amphetamines Screen Negative MDMA (Ecstasy) Screen Negative Benzodiazepines Screen Negative Cocaine Screen Negative U Marijuana (THC) Screen Positive A* 07/22/19 16:20 WBC RBC Hgb Hct MCV MCH MCHC RDW Plt Count MPV Absolute Neuts (auto) Neutrophils % Lymphocytes % Monocytes % Eosinophils % Basophils % Nucleated RBC % Sodium Potassium Chloride Carbon Dioxide Anion Gap BUN Creatinine Est GFR (CKD-EPI)AfAm Est GFR (CKD-EPI)NonAf Random Glucose Calcium Total Bilirubin AST ALT Alkaline Phosphatase Total Protein Albumin Urine Color Yellow Urine Appearance Clear Urine pH 5.5 Ur Specific [place] 1.021 Urine Protein Trace Urine Glucose (UA) Negative Urine Ketones Negative Urine Blood Negative Urine Nitrite Negative Urine Bilirubin Negative Urine Urobilinogen 0.2 Ur Leukocyte Esterase Negative Opiates Screen Methadone Screen Barbiturate Screen Phencyclidine Screen Ur Amphetamines Screen MDMA (Ecstasy) Screen Benzodiazepines Screen Cocaine Screen U Marijuana (THC) Screen labs are positive for marijuana. EKG shows the following: NSR with sinus arrhythmia noted. No ST elevations or depressions. No TWI noted. Ventricular rate is 67 bpm, QRS 86 ms, WI 216 ms, QTc is 409 ms. Patient was loaded with 1 gram of keppra. Patient stated he will follow up with his neurologist within 3 days after discharge. Dispo: Discharge <Edmund Maher - Last Filed: 07/22/19 18:26> Discharge - Discharge Information Problems reviewed: Yes - Admission No <Edmund Maher - Last Filed: 07/22/19 18:26> <Jailene Shields - Last Filed: 07/22/19 18:37> - Discharge Information Clinical Impression/Diagnosis: Seizure Condition: Good Disposition: HOME - Follow up/Referral Referrals: Bryn Fritz MD [Staff Physician] - - Patient Discharge Instructions Patient Printed Discharge Instructions: DI for Seizure Disorder -- Adult Additional Instructions: You were seen in the emergency department for the evaluation of your seizure. Your labs are within normal limits except for a positive screen of marijuana. Please follow up with your neurologist within 3 days after your discharge. Please take your medications as prescribed. Please return to the emergency department if you have worsening of symptoms or new concerning symptoms. Thank you.
--- NOTE | 2019-07-22 16:19 | PDOC ---
Attending Attestation - Resident Resident Name: GunnarEdmund - ED Attending Attestation I have performed the following: I have examined & evaluated the patient, The case was reviewed & discussed with the resident, I agree w/resident's findings & plan - HPI HPI: 07/22/19 16:17 24-year-old male with history of seizures with similar presentations in the ED previously presenting with seizure activity this afternoon. He was sitting in the chair and started having general tonic-clonic seizures witnessed by a friend while he was smoking cannabis. He had missed the dose of his Keppra last night and took his Keppra dose this morning. He has not had any recent adjustments in his medications. He does not recall his neurologist name. He has been eating and drinking normal, had a normal sleep last night from 11 to 6 AM. No recent fevers, cough or congestion, infection, GI symptoms, nausea vomiting or diarrhea. He is currently asymptomatic and back to his baseline. - Physicial Exam PE: 07/22/19 16:18 Agree with the resident's HPI and PE as documented in the electronic medical record. NAD, well appearing, EOMI, PERRL, nl conjunctiva, anicteric; neck supple. lungs clear, RRR, abdomen soft nontender. no rebound, guarding. Back nontender. VILLALOBOS x4, no focal neuro deficits. 5/5 prox and distal strength, SILT in all extrem. no drift. No peripheral edema. normal color for ethnicity, WWP. speech clear. 07/22/19 17:58 - Medical Decision Making 07/22/19 16:18 Vital Signs Temp Pulse Resp BP Pulse Ox 98.2 F 91 H 17 130/62 100 07/22/19 13:46 07/22/19 13:46 07/22/19 13:46 07/22/19 13:46 07/22/19 13:46 Patient with a clear history of seizures currently on Keppra twice a day and took his dose this morning but missed last night. Could also be drug-induced as he was smoking cannabis earlier today. Basic laboratory results/chemistries , EKG, reassess. He is currently back to baseline, no recurrence of symptoms and will discharge back with medication compliance. VS wnl here, hd appropriate no fevers given keppra load here, Utox +cannibis. keppra level sent labs and lytes normal, no CT imaging indicated at this time, as back to baseline, known seizure, no systemic or focal findings, normal neuro exam as documented Pt to be discharged in stable condition. Patient and family made aware of clinical impression, treatment recommendations and disposition plan, return precautions discussed (including but not limited to new or persistent/worsening symptoms, pain, fevers, or signs of infection, chest pain, respiratory distress , inability to tolerate oral intake, dehydration, syncope, or neurologic changes ). Follow up with PMD and/or specialist as recommended, follow up information provided, take medications as instructed for duration of time. continue with supportive care, avoid triggers and precipitants. All questions answered to patient's satisfaction and expressed understanding and comfort with this. At the time of discharge, the patient is alert, clinically improved, tolerating po and verbalizes understanding of instructions, satisfied with the care received and felt comfortable with the plan. Patient does not suffer from an acute life- threatening medical condition at this time and is safe for outpatient follow- up. 07/22/19 17:15 07/22/19 17:16
[2019-07-22 16:35] LABS: BASO % 0.3 % (0-2.0); HEMOGLOBIN 12.5 GM/dL (11.7-16.9); MCH 26.1 pg (25.7-33.7); MCHC 32.2 g/dl (32.0-35.9); WHITE BLOOD COUNT 5.8 K/mm3 (4.0-10.0)
[2019-07-22] MEDS ORDERED: levETIRAcetam 500 MG TABLET (FP) PO ONE ×2 (16:38→16:39)
[2019-07-22] MEDS ORDERED: ACETAMINOPHEN 325 MG TABLET (FP) ONE (16:39)
[2019-07-22 16:42] LABS: PH,URINE 5.5 (5.0-8.0); URINE APPEARANCE CLEAR; URINE BILIRUBIN NEGATIVE (NEGATIVE); URINE COLOR YELLOW; URINE GLUCOSE (UA) NEGATIVE (NEGATIVE); URINE KETONE NEGATIVE (NEGATIVE); URINE LEUK ESTERASE NEGATIVE (NEGATIVE); URINE NITRITE NEGATIVE (NEGATIVE); URINE PROTEIN TRACE (NEGATIVE); URINE UROBILINOGEN 0.2 mg/dL (0.2-1.0)
[2019-07-22 16:45] LABS: EOS % 0.1 % (0-4.5); HEMATOCRIT 38.6 % (35.4-49); MEAN CELL VOLUME 80.9 fl (80-96); MEAN PLT VOLUME 9.3 fl (7.5-11.1); MONO % 6.3 % (3.8-10.2); NEUT % 81.3 % (42.8-82.8); PLATELET COUNT 150 K/MM3 (134-434); RBC 4.77 M/mm3 (4.00-5.60); RDW 15.1 % (11.9-15.9)
[2019-07-22 16:56] LABS: COCAINE, UR NEGATIVE ng/ml (CUTOFF=300); OPIATES, URI NEGATIVE ng/ml (CUTOFF=300); PHENCYCLIDINE,URINE NEGATIVE ng/ml (CUTOFF=25); URINE AMPHETAMINES NEGATIVE ng/ml (CUTOFF=500); URINE BARBITURATES NEGATIVE ng/ml (CUTOFF=200); URINE BENZODIAZEPINES NEGATIVE ng/ml (CUTOFF=200)
[2019-07-22 16:57] LABS: METHADONE, UR NEGATIVE ng/ml (CUTOFF=300)
[2019-07-22 17:03] LABS: ALBUMIN 4.1 g/dl (3.4-5.0); BILIRUBIN,TOTAL 0.4 mg/dL (0.2-1); BLOOD UREA NITROGEN 18.7 mg/dL (7-18); CALCIUM 8.8 mg/dL (8.5-10.1); CREATININE 1.2 mg/dL (0.55-1.3); POTASSIUM 3.8 mmol/L (3.5-5.1); TOT PROT 7.7 g/dl (6.4-8.2)
[2019-07-22 18:39] VITALS: BP 124/65; PULSE 80
--- NOTE | 2019-07-23 10:51 | EKG ---
Test Reason : Blood Pressure : / mmHG Vent. Rate : 067 BPM Atrial Rate : 067 BPM P-R Int : 216 ms QRS Dur : 086 ms QT Int : 388 ms P-R-T Axes : 051 080 049 degrees QTc Int : 409 ms SINUS RHYTHM WITH SINUS ARRHYTHMIA WITH 1ST DEGREE A-V BLOCK OTHERWISE NORMAL ECG WHEN COMPARED WITH ECG OF 15-FEB-2018 08:51, NO SIGNIFICANT CHANGE WAS FOUND Confirmed by ANA HITCHCOCK, AIDE ([id number]) on 07/23/2019 10:50:58 AM Referred By: Confirmed By:AIDE PEREZ MD
== END 2019-07-22 18:39 | disposition home or self-care (01) ==
LOC: JER 13:38
DX: G40.909 Epilepsy, unspecified, not intractable, without status epilepticus (principal); F12.10 Cannabis abuse, uncomplicated
CPT/HCPCS: 36415; 80053; 80177; 80307; 81003; 85025; 93005; 93010; 99283-25

== ENCOUNTER 2020-11-08 08:27 | Emergency (ER) | payer OTHER ==
[2020-11-08 09:15] VITALS: BMI 25.0
[2020-11-08] MEDS ORDERED: levETIRAcetam 500 MG TABLET (FP) PO ONE ×3 (10:16→11:44)
[2020-11-08] MEDS ORDERED: ACETAMINOPHEN 325 MG TABLET (FP) PO ONE (10:16)
[2020-11-08 10:58] LABS: BASO % 0.3 % (0-2.0); EOS % 0.2 % (0-4.5); HEMATOCRIT 41.3 % (35.4-49); HEMOGLOBIN 13.4 GM/dL (11.7-16.9); LYMPH % 12.6 % (8-40); MCH 26.2 pg (25.7-33.7); MCHC 32.5 g/dl (32.0-35.9); MEAN CELL VOLUME 80.7 fl (80-96); MEAN PLT VOLUME 9.3 fl (7.5-11.1); MONO % 7.3 % (3.8-10.2); NEUT % 79.6 % (42.8-82.8); PLATELET COUNT 126 K/MM3 (134-434); RBC 5.11 M/mm3 (4.00-5.60); RDW 14.3 % (11.9-15.9); WHITE BLOOD COUNT 6.3 K/mm3 (4.0-10.0)
[2020-11-08] MEDS ORDERED: ACETAMINOPHEN 325 MG TABLET (FP) ONE (11:00)
[2020-11-08 11:10] LABS: EPI CELLS 1 /uL (0-25.1); HYALINE CASTS 0 /uL (0-3.1); URINE APPEARANCE CLEAR; URINE BACTERIA 119 /uL (0-1359); URINE BILIRUBIN NEGATIVE (NEGATIVE); URINE COLOR YELLOW; URINE GLUCOSE (UA) NEGATIVE (NEGATIVE); URINE KETONE NEGATIVE (NEGATIVE); URINE LEUK ESTERASE NEGATIVE (NEGATIVE); URINE NITRITE NEGATIVE (NEGATIVE); URINE PROTEIN TRACE (NEGATIVE); URINE RBC 3 /uL (0-23.9); URINE UROBILINOGEN 0.2 mg/dL (0.2-1.0); URINE WBC 2 /uL (0-25.8)
[2020-11-08] MEDS ORDERED: levETIRAcetam 250 MG TABLET PO ONE (11:32)
[2020-11-08 12:01] LABS: CALCIUM 8.8 mg/dL (8.5-10.1)
[2020-11-08 12:02] LABS: BLOOD UREA NITROGEN 22.3 mg/dL (7-18)
[2020-11-08 12:05] LABS: CREATININE 1.2 mg/dL (0.55-1.3)
[2020-11-08 12:06] LABS: BILIRUBIN,TOTAL 0.8 mg/dL (0.2-1)
[2020-11-08 12:07] LABS: TOT PROT 8.1 g/dl (6.4-8.2)
[2020-11-08 13:05] VITALS: BP 125/78; PULSE 70; TEMP 98.5
== END 2020-11-08 13:05 | disposition home or self-care (01) ==
LOC: JER 08:27
DX: R56.9 Unspecified convulsions (principal)
CPT/HCPCS: 36415; 80053; 81003; 85025; 87086; 93005; 93010; 99285-25

== ENCOUNTER 2024-01-24 08:22 | Emergency (ER) | payer OTHER ==
[2024-01-24 08:49] VITALS: BP 130/81; PULSE 89; RESP 18; TEMP 97.8; BMI 26.2
[2024-01-24] MEDS: SODIUM CHLORIDE 0.9% 1000 ML INFUS.BAG IV ONE (09:09)
[2024-01-24 09:12] LABS: BASO % 0.4 % (0-2.0); EOS % 0.6 % (0-4.5); HEMATOCRIT 39.7 % (35.4-49); HEMOGLOBIN 12.8 GM/dL (11.7-16.9); LYMPH % 18.7 % (8-40); MCH 26.2 pg (25.7-33.7); MCHC 32.3 g/dl (32.0-35.9); MEAN PLT VOLUME 8.6 fl (7.5-11.1); MONO % 6.8 % (3.8-10.2); NEUT % 73.5 % (42.8-82.8); PLATELET COUNT 124 10^3/uL (134-434); RBC 4.91 M/mm3 (4.00-5.60); RDW 14.3 % (11.9-15.9); WHITE BLOOD COUNT 5.7 K/mm3 (4.0-10.0)
[2024-01-24 09:27] LABS: POTASSIUM 3.8 mmol/L (3.5-5.1)
[2024-01-24 09:29] LABS: ALBUMIN 3.9 g/dl (3.4-5.0); BLOOD UREA NITROGEN 20.6 mg/dL (7-18); CALCIUM 8.9 mg/dL (8.5-10.1)
[2024-01-24 09:32] LABS: CREATININE 1.3 mg/dL (0.55-1.3)
[2024-01-24 09:34] LABS: BILIRUBIN,TOTAL 0.3 mg/dL (0.2-1); TOT PROT 8.2 g/dl (6.4-8.2)
== END 2024-01-24 11:52 | disposition home or self-care (01) ==
LOC: JER 08:22
DX: G40.909 Epilepsy, unspecified, not intractable, without status epilepticus (principal)
CPT/HCPCS: 36415; 80053; 80177; 83605; 85025; 93005; 93010; 99284-25

== ENCOUNTER 2024-03-06 13:37 | Emergency (ER) | payer OTHER ==
[2024-03-06 14:04] VITALS: BMI 29.5
[2024-03-06] MEDS ORDERED: levETIRAcetam 500 MG TABLET (FP) PO ONE (14:29)
[2024-03-06] MEDS: levETIRAcetam 500 MG TABLET (FP) PO ONE (14:32)
[2024-03-06] MEDS ORDERED: MIDAZOLAM HCL 2 MG/2 ML SINGLE DOSE VIAL ONE (15:31)
[2024-03-06] MEDS ORDERED: levETIRAcetam 500 MG/5 ML INJECTION VIAL IVPB ONE (15:50)
[2024-03-06] MEDS: levETIRAcetam 500 MG/5 ML INJECTION VIAL IVPB ONE (15:54)
[2024-03-06 17:41] VITALS: BP 124/86; PULSE 78; RESP 16; TEMP 98
== END 2024-03-06 17:41 | disposition home or self-care (01) ==
LOC: JER 13:37
PROC: 3E033GC Introduction of Other Therapeutic Substance into Peripheral Vein, Percutaneous Approach (ICD-10-PCS; principal; 2024-03-06)
PROC: 3E033GC Introduction of Other Therapeutic Substance into Peripheral Vein, Percutaneous Approach (ICD-10-PCS; 2024-03-06)
DX: G40.909 Epilepsy, unspecified, not intractable, without status epilepticus (principal)
CPT/HCPCS: 70450-TC; 82962; 93005; 93010; 99285-25